=== PATIENT | female | born 1960 | race Hispanic/Latino ===

== ENCOUNTER 2016-10-08 20:56 | Emergency (ER) | payer OTHER ==
[2016-10-08 20:56] VITALS: BMI 32.3
[2016-10-08 21:03] VITALS: BP 134/66
[2016-10-08 21:06] VITALS: RESP 18; O2SAT 99
--- NOTE | 2016-10-08 21:14 | ED PDOC ---
Arrival/HPI - General Chief Complaint: Trauma Time Seen by Provider: 10/08/16 21:01 Historian: Patient, Caregiver - History of Present Illness Narrative History of Present Illness (Text): 10/08/16 21:04 Andreea Padilla is a 56 year old female, whose past medical history includes Down's Syndrome, hypothyroidism, gout and dementia, who presents to the emergency department accompanied by gang leader status post mechanical fall. [employer] states patient tripped on the bed and hit her head. Patient now complaining of a headache. [employer] denies any loss of consciousness, neck pain , back pain, abdominal, vomiting, or any other complaints. Time/Duration: Other Symptom Course: Unchanged Severity Level: Mild Activities at Onset: Light Modifying Factors (Text): None Context: Standing, Tripped Associated Symptoms (Text): None Past Medical History - Provider Review Nursing Documentation Reviewed: Yes - Infectious Disease Hx of Infectious Diseases: None - Tetanus Immunization Tetanus Immunization: Unknown - Cardiac Hx Cardiac Disorders: No Hx Hypertension: No - Pulmonary Hx Respiratory Disorders: Yes Hx Asthma: Yes - Neurological HX Cerebrovascular Accident: No Hx Dementia: (Down syndrome) Hx Seizures: No - HEENT Hx HEENT Disorder: Yes (strabismus) - Renal Hx Renal Disorder: No - Endocrine/Metabolic Hx Hypothyroidism: Yes - Hematological/Oncological Hx Blood Disorders: No Hx Cancer: No - Integumentary Hx Dermatological Disorder: No - Musculoskeletal/Rheumatological Hx Falls: No - Gastrointestinal Hx Gastrointestinal Disorders: No - Genitourinary/Gynecological Hx Genitourinary Disorders: No - Psychiatric Hx Psychophysiologic Disorder: Yes Hx Depression: Yes Hx Emotional Abuse: No Hx Physical Abuse: No Hx Substance Use: No - Past Surgical History Past Surgical History: Unable to Obtain - Suicidal Assessment Feels Threatened In Home Enviroment: No Family/Social History - Physician Review Nursing Documentation Reviewed: Yes Family/Social History: Unknown Family HX Smoking Status: Never Smoked Hx Alcohol Use: No Hx Substance Use: No Hx Substance Use Treatment: No Allergies/Home Meds Allergies/Adverse Reactions: Allergies peaches Allergy (Uncoded 10/08/16 21:17) RASH Home Medications: Home Meds Medication Instructions Recorded Confirmed Clonazepam 0.5 mg PO BID 08/16/11 07/15/14 Colchicine [Colcrys] 0.6 mg PO DAILY 08/16/11 07/15/14 Levothyroxine Sodium 75 mcg PO DAILY 08/16/11 07/15/14 Cholecalciferol [Vitamin D3] 1 tab PO DAILY 01/10/13 07/15/14 Allopurinol 300 mg PO DAILY 06/12/13 07/15/14 QUEtiapine [Seroquel] 100 mg PO DAILY 06/12/13 07/15/14 Famotidine 40 mg PO BID 12/09/13 07/15/14 QUEtiapine [Seroquel XR] 400 mg PO DAILY 12/09/13 07/15/14 Vitamin B Complex [Vitamin B 1 tab PO DAILY 12/09/13 07/15/14 Complex with B12] Fludrocortisone [Florinef] 0.05 mg PO DAILY 07/15/14 07/15/14 Polyethylene Glycol 3350 [Glycolax] 17 gm PO DAILY 07/15/14 07/15/14 Review of Systems - Physician Review All systems were reviewed & negative as marked: Yes - Review of Systems Constitutional: Normal Eyes: Other ENT: Normal Respiratory: Normal. absent: SOB, Cough Cardiovascular: Normal. absent: Chest Pain Gastrointestinal: Normal. absent: Abdominal Pain, Diarrhea, Vomiting Genitourinary Female: Normal Musculoskeletal: Normal. absent: Back Pain, Neck Pain Skin: Normal Neurological: Headache. absent: Dizziness Endocrine: Normal Hemo/Lymphatic: Normal Psychiatric: Normal Physical Exam Vital Signs Reviewed: Yes Vital Signs Temp Pulse Resp BP Pulse Ox 10/08/16 23:05 98.0 F 71 18 99 10/08/16 20:58 98.6 F 79 18 134/66 99 10/08/16 20:56 97.5 F L 69 16 134/66 96 Temperature: Afebrile Blood Pressure: Normal Pulse: Regular Respiratory Rate: Normal Appearance: Positive for: Well-Appearing Mental Status: Positive for: other (Alert) - Systems Exam Head: Present: Normocephalic, Contusion (Contusion to forehead) Pupils: Present: PERRL Extroacular Muscles: Present: EOMI Conjunctiva: Present: Normal Mouth: Present: Moist Mucous Membranes Neck: Present: Normal Range of Motion Respiratory/Chest: Present: Clear to Auscultation, Good Air Exchange. No: Respiratory Distress, Accessory Muscle Use Cardiovascular: Present: Regular Rate and Rhythm, Normal S1, S2. No: Murmurs Abdomen: Present: Normal Bowel Sounds. No: Tenderness, Distention, Peritoneal Signs Upper Extremity: Present: Normal Inspection. No: Cyanosis, Edema Lower Extremity: Present: Normal Inspection. No: Edema Neurological: Present: GCS=15, CN II-XII Intact Skin: Present: Warm, Dry, Normal Color. No: Rashes Psychiatric: Present: Alert Medical Decision Making ED Course and Treatment: 10/08/2016 21:04 Impression: 56 year old female s/p mechanical fall. Differential Diagnosis included but are not limited to: hematoma vs. head injury Plan: -- CT Head w/o contrast 10/08/16 22:50 Reviewed radiology, CT head shows: Limitations: Motion artifact - mild. Brain: Moderate atrophy. No definite intracranial hemorrhage. No mass. Moderate encephalomalacia within RIGHT parietal region. Mild encephalomalacia within LEFT frontal parietal region. Several scattered foci of decreased attenuation within periventricular/ subcortical white matter. No definite edema. Ventricles: No hydrocephalus. Bones/joints: No acute fracture. Soft tissues: Frontal/RIGHT periorbital soft tissue swelling. Vasculature: Mild atherosclerotic disease of intracranial arteries. Sinuses: No acute sinusitis. Mastoid air cells: Partial opacification of RIGHT mastoid. Orbits: Unremarkable as visualized. Drusens. IMPRESSION: 1. No definite intracranial hemorrhage. 2. Nonspecific white matter changes. 3. Incidental/non-acute findings are described above 10/08/16 22:56 On re-evaluation, the patient feels better and is in no acute distress. I have discussed the results and plan with the patient and gang leader, who expresses understanding. Patient and gang leader in agreement with plan to discharged home. Patient is stable for discharge. Patient and gang leader were instructed to follow up with physician/clinic in 1-2 days or return if symptoms worsen or new concerning symptoms arise. Re-evaluation Time: 22:56 Reassessment Condition: Re-examined, Improved - RAD Interpretation Radiology Orders: 10/08/16 21:06 HEAD W/O CONTRAST [CT] Stat Corporate Treasurer: Radiologist - Scribe Tadeo Lay training with Annabelle Urbano All medical record entries made by the Scribe were at my direction and personally dictated by me. I have reviewed the chart and agree that the record accurately reflects my personal performance of the history, physical exam, medical decision making, and the department course for this patient. I have also personally directed, reviewed, and agree with the discharge instructions and disposition. Disposition/Present on Arrival - Present on Arrival Any Indicators Present on Arrival: No History of DVT/PE: No History of Uncontrolled Diabetes: No Urinary Catheter: No History of Decub. Ulcer: No History Surgical Site Infection Following: None - Disposition Have Diagnosis and Disposition been Completed?: Yes Diagnosis: Head injury Disposition: HOME/ ROUTINE Disposition Time: 22:56 Condition: GOOD Discharge Instructions (ExitCare): Head Injury (ED) Referrals: Melvina Alex MD [Primary Care Provider] - Follow up with primary
--- NOTE | 2016-10-08 22:49 | CT ---
EXAM: CT Head Without Intravenous Contrast CLINICAL HISTORY: 56 years old, female; Injury or trauma; Fall; Initial encounter; Blunt trauma (contusions or hematomas) TECHNIQUE: Axial computed tomography images of the head/brain without intravenous contrast. This CT exam was performed using one or more of the following dose reduction techniques: automated exposure control, adjustment of the mA and/or kV according to patient size, and/or use of iterative reconstruction technique. COMPARISON: No relevant prior studies available. FINDINGS: Limitations: Motion artifact - mild. Brain: Moderate atrophy. No definite intracranial hemorrhage. No mass. Moderate encephalomalacia within RIGHT parietal region. Mild encephalomalacia within LEFT frontal parietal region. Several scattered foci of decreased attenuation within periventricular/subcortical white matter. No definite edema. Ventricles: No hydrocephalus. Bones/joints: No acute fracture. Soft tissues: Frontal/RIGHT periorbital soft tissue swelling. Vasculature: Mild atherosclerotic disease of intracranial arteries. Sinuses: No acute sinusitis. Mastoid air cells: Partial opacification of RIGHT mastoid. Orbits: Unremarkable as visualized. Drusens. IMPRESSION: 1. No definite intracranial hemorrhage. 2. Nonspecific white matter changes. 3. Incidental/non-acute findings are described above.
[2016-10-08 23:05] VITALS: PULSE 71; TEMP 98
== END 2016-10-08 23:06 | disposition home or self-care (01) ==
LOC: ED 20:56 → ERH 21:25 → UNDOADMOB 21:25 → ED 23:06
DX: S09.90XA Unspecified injury of head, initial encounter (principal); W01.190A Fall on same level from slipping, tripping and stumbling with subsequent striking against furniture, initial encounter; Y93.89 Activity, other specified; Y92.003 Bedroom of unspecified non-institutional (private) residence as the place of occurrence of the external cause

== ENCOUNTER 2016-12-31 10:55 | Emergency (ER) | payer OTHER ==
[2016-12-31 11:06] VITALS: BMI 34.0
[2016-12-31 11:10] VITALS: RESP 18; TEMP 97.9; O2SAT 99
[2016-12-31] MEDS ORDERED: TDAP Vaccine 0.5 mL Syr IM ONE (11:16)
--- NOTE | 2016-12-31 12:57 | CT ---
PROCEDURE: CT HEAD WITHOUT CONTRAST. HISTORY: headache COMPARISON: 10/08/2016 TECHNIQUE: Axial computed tomography images were obtained through the head/brain without intravenous contrast. Radiation dose: Total exam DLP = 701 mGy-cm. This CT exam was performed using one or more of the following dose reduction techniques: Automated exposure control, adjustment of the mA and/or kV according to patient size, and/or use of iterative reconstruction technique. FINDINGS: HEMORRHAGE: No intracranial hemorrhage. BRAIN: No mass effect or edema. Generalized cerebral atrophy and chronic microvascular ischemic changes similar-appearing. Old infarcts and encephalomalacia change - right posterior parietal and smaller left frontoparietal regions as noted previously. . VENTRICLES: Atrophy related ventricular prominence. -no change CALVARIUM: Unremarkable. PARANASAL SINUSES: Unremarkable as visualized. No significant inflammatory changes. MASTOID AIR CELLS: Unremarkable as visualized. No inflammatory changes. OTHER FINDINGS: Bilateral ocular lens convergence -unchanged IMPRESSION: No interval intracranial hemorrhage or mass effect. No midline shift or extra-axial collections. Chronic infarct chronic cephalo on Lasix changes. Atrophy changes -all similar
--- NOTE | 2016-12-31 13:09 | RAD ---
PROCEDURE: Right Knee Radiographs. HISTORY: knee pain COMPARISON: None. FINDINGS: BONES: Osseous hypertrophy worse separate well corticated ossifications bordering the superolateral patella and anterior medial femoral condyle. Both a developmental variant -bipartite patella and old osseous patellar avulsion injury are considerations. The findings are more pronounced than typically seen with just a bipartite patella. No acute fracture suspect JOINTS: Tricompartmental joint space narrowing patellofemoral joint space narrowing most pronounced JOINT EFFUSION: Possible minimal OTHER FINDINGS: Anterior intercondylar fossa spur and or loose body. IMPRESSION: Severe femoral joint space narrowing. Patellar laterally positioned -laterally centered to the lateral femoral condyle. Patellar osseous hypertrophic changes. A bipartite patella is 1 consideration. Additional patellar old osseous avulsions here however also suspect. Detailed medical history remote probably helpful Anterior inter condylar tibial surface spur versus tibial bordering loose body. No acute fracture suspect. No complete dislocation. Laterally position patella centered to the lateral femoral condyle
--- NOTE | 2016-12-31 13:24 | RAD ---
PROCEDURE: Right Wrist Radiographs. HISTORY: fall 2 days ago COMPARISON: None. FINDINGS: BONES: Plates with screws are partially visualized along the distal radial and ulnar shafts. Radiocarpal joint space narrowing no carpal fractures appreciated JOINTS: No dislocation. Radiocarpal joint space narrowing SOFT TISSUES: Normal. OTHER FINDINGS: None. IMPRESSION: No carpal fracture. No carpal dislocation. Radiocarpal joint space narrowing Distal radial and ulnar shaft side plates with screws -partially visualized
--- NOTE | 2016-12-31 13:28 | RAD ---
PROCEDURE: Right Hand Radiographs. HISTORY: fall 2 days ago COMPARISON: None. FINDINGS: BONES: No carpal or hand fractures Distal forearm orthopedic hardware partially visualize JOINTS: Mild distal interphalangeal joint arthrosis. Radiocarpal joint space degenerative narrowing SOFT TISSUES: Mild dorsal soft tissue swelling metacarpal head level OTHER FINDINGS: None. IMPRESSION: No hand or carpal proper fractures seen. Tiny spurs and/or sub mm ossific debris and or even old sub mm osseous chip dorsal avulsions at the radiocarpal articulation level cannot be entirely excluded. Here no soft tissue swelling suggested. Orthopedic hardware distal forearm Dorsal soft tissue swelling -metacarpal head level
--- NOTE | 2016-12-31 13:37 | RAD ---
PROCEDURE: Radiographs of the Right Forearm HISTORY: fall 2 days ago COMPARISON: None available. TECHNIQUE: Frontal and lateral views obtained. FINDINGS: BONES: Distal radial to epiphyseal trabecular microfracture -impaction type-nondisplaced suspect. Tiny chip fracture fragment borders the proximal radial styloid JOINT SPACES: Radiocarpal joint space narrowing OTHER FINDINGS: Radial and ulnar shafts side plates with horizontal screws in for presumed fractures here. No residual fracture lines here appreciated. No gross hardware failure appreciated. The screws are not all seen to separate views are completely in profile on both views available. Soft tissue calcification and or occasion levels and are dystrophic calcifications from prior trauma. . Subcutaneous reticulated edema IMPRESSION: Nondisplaced distal radial diaphyseal to epiphyseal trabecular microfracture with impaction. Elsewhere midshaft radial and ulnar orthopedic hardware present
--- NOTE | 2016-12-31 14:54 | ED PDOC ---
Arrival/HPI - General Chief Complaint: Trauma Time Seen by Provider: 12/31/16 11:15 Historian: Patient - History of Present Illness Narrative History of Present Illness (Text): 12/31/16 16:07 56yr old female presents today with right hand and wrist pain and swelling s/p fall 2 days ago. pt states she tripped and fell landing on right hand. she is c/ o of headache. denies dizziness or weakness. pt denies hitting her head. Fall was not witnessed by current staff with patient. pt denies any other complaints. Time/Duration: Other (2 days) Symptom Onset: Sudden Symptom Course: Unchanged Quality: Aching Past Medical History - Provider Review Nursing Documentation Reviewed: Yes - Travel History Have you recently traveled outside [place] w/in the past 3 mons?: No - Infectious Disease Hx of Infectious Diseases: None - Tetanus Immunization Tetanus Immunization: Unknown - Cardiac Hx Cardiac Disorders: No Hx Hypertension: No - Pulmonary Hx Respiratory Disorders: Yes Hx Asthma: Yes - Neurological HX Cerebrovascular Accident: No Hx Dementia: (Down syndrome) Hx Seizures: No - HEENT Hx HEENT Disorder: Yes (strabismus) - Renal Hx Renal Disorder: No - Endocrine/Metabolic Hx Hypothyroidism: Yes - Hematological/Oncological Hx Blood Disorders: No Hx Cancer: No - Integumentary Hx Dermatological Disorder: No - Musculoskeletal/Rheumatological Hx Falls: No - Gastrointestinal Hx Gastrointestinal Disorders: No - Genitourinary/Gynecological Hx Genitourinary Disorders: No - Psychiatric Hx Psychophysiologic Disorder: Yes Hx Depression: Yes Hx Emotional Abuse: No Hx Physical Abuse: No Hx Substance Use: No - Past Surgical History Past Surgical History: Unable to Obtain - Anesthesia Hx Anesthesia: No - Suicidal Assessment Feels Threatened In Home Enviroment: No Family/Social History - Physician Review Nursing Documentation Reviewed: Yes Family/Social History: Unknown Family HX Smoking Status: Never Smoked Hx Alcohol Use: No Hx Substance Use: No Hx Substance Use Treatment: No Allergies/Home Meds Allergies/Adverse Reactions: Allergies FISH Allergy (Verified 12/31/16 11:04) ANGIOEDEMA peaches Allergy (Uncoded 12/31/16 11:04) RASH Home Medications: Home Meds Medication Instructions Recorded Confirmed Clonazepam 0.5 mg PO BID 08/16/11 12/31/16 Colchicine [Colcrys] 0.6 mg PO DAILY 08/16/11 12/31/16 Levothyroxine Sodium 75 mcg PO DAILY 08/16/11 12/31/16 Cholecalciferol [Vitamin D3] 1 tab PO DAILY 01/10/13 12/31/16 Allopurinol 300 mg PO DAILY 06/12/13 12/31/16 QUEtiapine [Seroquel] 100 mg PO DAILY 06/12/13 12/31/16 Famotidine 40 mg PO BID 12/09/13 12/31/16 QUEtiapine [Seroquel XR] 400 mg PO DAILY 12/09/13 12/31/16 Vitamin B Complex [Vitamin B 1 tab PO DAILY 12/09/13 12/31/16 Complex with B12] Fludrocortisone [Florinef] 0.05 mg PO DAILY 07/15/14 12/31/16 Polyethylene Glycol 3350 [Glycolax] 17 gm PO DAILY 07/15/14 12/31/16 Review of Systems - Review of Systems Constitutional: absent: Fatigue, Fevers Respiratory: absent: SOB, Cough Cardiovascular: absent: Chest Pain Gastrointestinal: absent: Abdominal Pain Musculoskeletal: Arthralgias. absent: Back Pain, Neck Pain Neurological: Headache. absent: Dizziness Physical Exam Vital Signs Reviewed: Yes Vital Signs Temp Pulse Resp BP Pulse Ox 12/31/16 11:08 97.9 F 83 18 107/68 99 Temperature: Afebrile Blood Pressure: Normal Pulse: Regular Respiratory Rate: Normal Appearance: Positive for: Well-Appearing, Non-Toxic, Comfortable Pain Distress: None Mental Status: Positive for: Alert and Oriented X 3 - Systems Exam Head: Present: Atraumatic Pupils: Present: PERRL Mouth: Present: Moist Mucous Membranes Neck: Present: Normal Range of Motion. No: MIDLINE TENDERNESS, Paraspinal Tenderness Respiratory/Chest: Present: Clear to Auscultation Cardiovascular: Present: Regular Rate and Rhythm Upper Extremity: Present: NORMAL PULSES, Tenderness (right wrist/hand; + edema and ecchymosis noted to hand and wrist; + ttp over dorsal wrist; limited rom of hand and wrist; sensation and distal pulses intact; cap refill <2. no elbow tenderness. ), Swelling, Neurovascularly Intact, Capillary Refill < 2s. No: Normal ROM, Erythema Neurological: Present: GCS=15, Speech Normal Skin: Present: Warm, Dry, Normal Color. No: Rashes Psychiatric: Present: Alert, Oriented x 3 Medical Decision Making ED Course and Treatment: 12/31/16 14:54 pt non toxic well appearing. c/o right hand/wrist pain tetanus updated. toradol given IM. xrays right hand:FINDINGS: BONES: No carpal or hand fractures Distal forearm orthopedic hardware partially visualize JOINTS: Mild distal interphalangeal joint arthrosis. Radiocarpal joint space degenerative narrowing SOFT TISSUES: Mild dorsal soft tissue swelling metacarpal head level OTHER FINDINGS: None. IMPRESSION: No hand or carpal proper fractures seen. Tiny spurs and/or sub mm ossific debris and or even old sub mm osseous chip dorsal avulsions at the radiocarpal articulation level cannot be entirely excluded. Here no soft tissue swelling suggested. Orthopedic hardware distal forearm Dorsal soft tissue swelling -metacarpal head level ADDENDUM: Subtle nondisplaced distal radial trabecular microfracture -probable impaction type suspect. xray right wrist: ADDENDUM: A faint distal radio metaphyseal to epiphyseal displaced trabecular impaction fracture suspect -trace volar cortical interruption. FINDINGS: BONES: Plates with screws are partially visualized along the distal radial and ulnar shafts. Radiocarpal joint space narrowing no carpal fractures appreciated JOINTS: No dislocation. Radiocarpal joint space narrowing SOFT TISSUES: Normal. OTHER FINDINGS: None. IMPRESSION: No carpal fracture. No carpal dislocation. Radiocarpal joint space narrowing Distal radial and ulnar shaft side plates with screws -partially visualized xray right forearmFINDINGS: BONES: Distal radial to epiphyseal trabecular microfracture -impaction type- nondisplaced suspect. Tiny chip fracture fragment borders the proximal radial styloid JOINT SPACES: Radiocarpal joint space narrowing OTHER FINDINGS: Radial and ulnar shafts side plates with horizontal screws in for presumed fractures here. No residual fracture lines here appreciated. No gross hardware failure appreciated. The screws are not all seen to separate views are completely in profile on both views available. Soft tissue calcification and or occasion levels and are dystrophic calcifications from prior trauma. . Subcutaneous reticulated edema IMPRESSION: Nondisplaced distal radial diaphyseal to epiphyseal trabecular microfracture with impaction. Elsewhere midshaft radial and ulnar orthopedic hardware present head CT; FINDINGS: HEMORRHAGE: No intracranial hemorrhage. BRAIN: No mass effect or edema. Generalized cerebral atrophy and chronic microvascular ischemic changes similar-appearing. Old infarcts and encephalomalacia change - right posterior parietal and smaller left frontoparietal regions as noted previously. . VENTRICLES: Atrophy related ventricular prominence. -no change CALVARIUM: Unremarkable. PARANASAL SINUSES: Unremarkable as visualized. No significant inflammatory changes. MASTOID AIR CELLS: Unremarkable as visualized. No inflammatory changes. OTHER FINDINGS: Bilateral ocular lens convergence -unchanged IMPRESSION: No interval intracranial hemorrhage or mass effect. No midline shift or extra- axial collections. Chronic infarct chronic cephalo on Lasix changes. Atrophy changes -all similar pt placed in sugar tong splint. sling applied. spoke with dr. yu; discussed case in depth; he states he is coming to the ER now and will come see patient in ER. pt was seen and evaluated by dr. yu; he advised due to swelling the sugar tong splint is perfect and he will see the patient in the office in 10 days and re-evaluation. all results discussed with patient and caregiver. advised f/u with dr. yu in 7-10 days in office. motrin for pain every 6 hours. return immediately if symptoms worsen,persist or if new symptoms develop. Impression: wrist fracture motrin every 6 hours as needed for pain use Sling Rest, Ice, follow up with dr. Yu in 7-10 days return immediately if symptoms worsen,persist or if new symptoms develop; high fevers, increasing pain, redness, swelling or if any other concerning symptoms develop. - RAD Interpretation Radiology Orders: 12/31/16 11:15 HEAD W/O CONTRAST [CT] Stat FOREARM RIGHT [RAD] Stat HAND RIGHT 3 VIEWS [RAD] Stat WRIST, RIGHT 3 VIEWS [RAD] Stat 12/31/16 11:16 KNEE W PATELLA RIGHT 3 VIEW [RAD] Stat - Medication Orders Current Medication Orders: Discontinued Medications Ketorolac Tromethamine (Toradol) 15 mg IM STAT STA Stop: 12/31/16 11:17 Last Admin: 12/31/16 11:28 Dose: 15 mg MAR Pain Assessment Document 12/31/16 11:28 EQ (Rec: 12/31/16 11:29 EQ [id number]) Pain Reassessment Is this a pain reassessment? No Sleep Is patient sleeping during reassessment? No Presence of Pain Presence of Pain Yes Pain Scale Used Pain Scale Used Numeric Location Left, Right or Bilateral Right Pain Location Body Site Wrist Hand Description Description Constant Intensity of Pain at present 6 IM Administration Charges Document 12/31/16 11:28 EQ (Rec: 12/31/16 11:29 EQ [id number]) Injection Site MAR Injection Site Right Arm Charges for Administration # of IM Administrations 1 Tetanus/Reduced Diphtheria/Acell Pertussis (Boostrix Vaccine Inj) 0.5 ml IM .ONCE ONE Stop: 12/31/16 11:17 Last Admin: 12/31/16 11:27 Dose: 0.5 ml MAR Immunization Data Document 12/31/16 11:27 EQ (Rec: 12/31/16 11:28 EQ [id number]) Immunization Data Vaccine Lot Number [id number] Vaccine Expiration Date 12/17/18 Site Given Left Deltoid Route Intramuscular Immunization Units ml Procedures - Splinting Location: right wrist Hand-Made Type: fiberglass Splint: sugar-tong Pre-Proc Neuro Vasc Exam: normal Post-Proc Neuro Vasc Exam: normal Disposition/Present on Arrival - Present on Arrival Any Indicators Present on Arrival: No History of DVT/PE: No History of Uncontrolled Diabetes: No Urinary Catheter: No History of Decub. Ulcer: No History Surgical Site Infection Following: None - Disposition Have Diagnosis and Disposition been Completed?: Yes Diagnosis: Wrist fracture Disposition: HOME/ ROUTINE Disposition Time: 14:56 Patient Plan: Discharge Patient Problems: Current Active Problems Problem Status Onset Wrist fracture Acute Condition: GOOD Discharge Instructions (ExitCare): Wrist Fracture in Adults (ED) Additional Instructions: motrin every 6 hours as needed for pain use Sling Rest, Ice, follow up with dr. Yu in 7-10 days return immediately if symptoms worsen,persist or if new symptoms develop; high fevers, increasing pain, redness, swelling or if any other concerning symptoms develop. Prescriptions: Ibuprofen [Motrin Tab] 400 mg PO Q6H PRN #20 tab PRN Reason: Pain, Mild (1-3) Referrals: Melvina Alex MD [Primary Care Provider] - Follow up with primary Salvador Yu DO [Staff Provider] - Follow up with primary Forms: [employer] (Chinese)
[2016-12-31 15:49] VITALS: BP 108/70; PULSE 74
--- NOTE | 2017-01-01 07:38 | CON ---
DATE: 12/31/2016 HISTORY OF PRESENT ILLNESS: A 56-year-old female with Down's disease in a longterm, slipped and fell approximately on 12/26/2016, injured her dominant right wrist. X-ray showed a nondisplaced fracture of distal radius in good position on multiple views of her right wrist. She was put in a coaptation splint because she did have previous fracture of both bones of her forearm. This will protect the plates in her right forearm for previously operated on forearm and to protect the right wrist and I will see her in office in 2 weeks, probably take the cast off and put her in a wrist splint. FINAL DIAGNOSIS: Nondisplaced distal right radius fracture in a female patient, 56 years old with mild osteopenia and I will see her in 2 weeks and probably put her in a short arm splint. Salvador Garcia DO
== END 2016-12-31 15:58 | disposition home or self-care (01) ==
LOC: ED 10:55
DX: S52.591A Other fractures of lower end of right radius, initial encounter for closed fracture (principal); W01.0XXA Fall on same level from slipping, tripping and stumbling without subsequent striking against object, initial encounter; Y93.9 Activity, unspecified; Y92.89 Other specified places as the place of occurrence of the external cause
CPT/HCPCS: 70450; 73090; 73110; 73130; 73562; 90471; 90715; 96372; 99284; J1885

== ENCOUNTER 2017-03-12 22:57 | Inpatient (IN) | payer OTHER ==
[2017-03-12 22:58] VITALS: BMI 34.0
[2017-03-13 00:40] LABS: BASO # 0.04 K/mm3 (0.0-2.0); BASO % 0.7 % (0.0-3.0); EOS % 0.7 % (1.5-5.0); GRAN # 3.62 (1.4-6.5); GRAN % 62.6 % (50.0-68.0); HEMATOCRIT 35.1 % (36.0-48.0); LYMPH # 1.7 (1.2-3.4); LYMPH % 29.6 % (22.0-35.0); MEAN CELL VOLUME 96.7 fl (80.0-105.0); MEAN CORPUSCULAR HEMOGLOBIN 30.6 pg (25.0-35.0); MEAN CORPUSCULAR HGB CONC 31.6 g/dl (31.0-37.0); MEAN PLATELET VOLUME 11.4 fl (7.0-11.0); MONO # 0.4 (0.1-0.6); MONO % 6.4 % (1.0-6.0); RED CELL DISTRIBUTION WIDTH 17.8 % (11.5-14.5); WHITE BLOOD COUNT 5.8 10^3/ul (4.5-11.0)
[2017-03-13 01:03] LABS: TROPONIN I < 0.01 ng/mL
[2017-03-13 01:21] LABS: ALB/GLOB RATIO 1.2 (1.1-1.8); ALKALINE PHOSPHATASE 121 U/L (38-126); ALT/SGPT 25 U/L (7-56); AST/SGOT 23 U/L (14-36); BILIRUBIN,TOTAL 0.3 mg/dL (0.2-1.3); BLOOD UREA NITROGEN 21 mg/dL (7-21); CALCIUM 8.7 mg/dL (8.4-10.5); CARBON DIOXIDE 28 mmol/L (21-33); CHLORIDE 105 mmol/L (98-107); GFR AFRICAN-AMERICAN > 60; GLUCOSE,RANDOM 115 mg/dL (70-110); LIPASE 288 U/L (23-300); POTASSIUM 3.7 mmol/L (3.6-5.0); SODIUM 141 mmol/L (132-148); TOTAL PROTEIN 6.5 g/dL (5.8-8.3)
--- NOTE | 2017-03-13 02:26 | CT ---
EXAM: CT Head Without Intravenous Contrast CLINICAL HISTORY: 57 years old, female; Pain; Headache; Patient HX: Pt has down syndrome TECHNIQUE: Axial computed tomography images of the head/brain without intravenous contrast. All CT scans at this facility use one or more dose reduction techniques, viz.: automated exposure control; ma/kV adjustment per patient size (including targeted exams where dose is matched to indication; i.e. head); or iterative reconstruction technique. COMPARISON: CT - HEAD W/O CONTRAST 2016-12-31 11:30 FINDINGS: Limitations: Suboptimal positioning. Brain: Moderate atrophy. No intracranial hemorrhage. No mass. Moderate encephalomalacia within RIGHT parietal region. Mild encephalomalacia within LEFT parietal region. Several scattered foci of decreased attenuation within periventricular/subcortical white matter. No edema. Ventricles: No hydrocephalus. Bones/joints: No acute fracture. Soft tissues: RIGHT parietal soft tissue swelling. Vasculature: Atherosclerotic disease of intracranial arteries. Sinuses: No acute sinusitis. Mastoid air cells: Partial opacification of RIGHT mastoid, stable. Orbits: Drusens. IMPRESSION: 1. No intracranial hemorrhage. 2. Nonspecific white matter changes. 3. Incidental/non-acute findings are described above.
--- NOTE | 2017-03-13 02:30 | CT ---
EXAM: CT Thoracic Spine Without Intravenous Contrast CLINICAL HISTORY: 57 years old, female; Injury or trauma; Fall; Initial encounter; Sprain or strain; Additional info: Fall, back pain TECHNIQUE: Axial computed tomography images of the thoracic spine without intravenous contrast. All CT scans at this facility use one or more dose reduction techniques, viz.: automated exposure control; ma/kV adjustment per patient size (including targeted exams where dose is matched to indication; i.e. head); or iterative reconstruction technique. Coronal and sagittal reformatted images were created and reviewed. COMPARISON: No relevant prior studies available. FINDINGS: Vertebrae: No acute fracture. Discs/spinal canal/neural foramina: Mild spondylosis. No significant spinal stenosis. Soft tissues: Unremarkable. Vasculature: Minimal atherosclerotic disease of aorta. Lungs: Mosaic pattern of lung parenchyma, nonspecific. Kidneys and ureters: Mild scarring LEFT kidney. IMPRESSION: 1. No fracture. 2. Incidental/non-acute findings are described above.
--- NOTE | 2017-03-13 02:35 | CT ---
EXAM: CT Cervical Spine Without Intravenous Contrast CLINICAL HISTORY: 57 years old, female; Injury or trauma; Fall; Initial encounter; Sprain or strain, cervical ligaments; Patient HX: Pt has down syndrome; Additional info: Neck pain TECHNIQUE: Axial computed tomography images of the cervical spine without intravenous contrast. All CT scans at this facility use one or more dose reduction techniques, viz.: automated exposure control; ma/kV adjustment per patient size (including targeted exams where dose is matched to indication; i.e. head); or iterative reconstruction technique. Coronal and sagittal reformatted images were created and reviewed. COMPARISON: DX - CERVICAL SPINE AP LATERAL 2017-01-02 14:03 FINDINGS: Vertebrae: No acute fracture. Degenerative anterolisthesis of mid cervical spine. Facet osteoarthrosis within mid cervical spine. Discs/spinal canal/neural foramina: Mild degenerative disc disease within upper cervical spine. Early degenerative disc disease within mid cervical spine. [id number] degenerative disc disease within lower cervical spine. Disc herniations at few levels, suboptimally evaluated. Mild indentation thecal sac mid cervical spine. Mild neuroforaminal narrowing with mid cervical spine. Soft tissues: Unremarkable. Lung apices: Unremarkable as visualized. IMPRESSION: 1. No fracture. 2. Incidental/non-acute findings are described above.
--- NOTE | 2017-03-13 03:29 | ED PDOC ---
Arrival/HPI <Man Marquez - Last Filed: 03/13/17 03:47> - General Historian: Patient, Caregiver <Annel Wick - Last Filed: 03/13/17 03:59> - General Chief Complaint: Trauma Time Seen by Provider: 03/12/17 23:43 - History of Present Illness Narrative History of Present Illness (Text): 03/13/17 03:26 57-year-old female with a history of Down's syndrome presents today complaining of dizziness and fall. Per intermediate staff they heard a loud bang and went and found the patient on the ground. Patient unable to explain if she tripped and fell. Patient denies chest pain but is complaining of dizziness. Patient unsure if she hit her head. Patient denies any complaints but when the ankles are palpated she complains of pain and when the posterior neck is palpated she complains of pain. No vomiting or diarrhea. No urinary symptoms. half-way staff state the patient has swelling to the right hand. No other complaints ( Annel Wick) Past Medical History - Provider Review Nursing Documentation Reviewed: Yes - Travel History Have you recently traveled outside [place] w/in the past 3 mons?: No - Infectious Disease Hx of Infectious Diseases: None - Tetanus Immunization Tetanus Immunization: Unknown - Cardiac Hx Cardiac Disorders: No Hx Hypertension: No - Pulmonary Hx Respiratory Disorders: Yes Hx Asthma: Yes - Neurological HX Cerebrovascular Accident: No Hx Dementia: (Down syndrome) Hx Seizures: No - HEENT Hx HEENT Disorder: Yes (strabismus) - Renal Hx Renal Disorder: No - Endocrine/Metabolic Hx Hypothyroidism: Yes - Hematological/Oncological Hx Blood Disorders: No Hx Cancer: No - Integumentary Hx Dermatological Disorder: No - Musculoskeletal/Rheumatological Hx Falls: No - Gastrointestinal Hx Gastrointestinal Disorders: No - Genitourinary/Gynecological Hx Genitourinary Disorders: No - Psychiatric Hx Psychophysiologic Disorder: Yes Hx Depression: Yes Hx Emotional Abuse: No Hx Physical Abuse: No Hx Substance Use: No - Past Surgical History Past Surgical History: Unable to Obtain - Anesthesia Hx Anesthesia: No - Suicidal Assessment Feels Threatened In Home Enviroment: No <Annel Wick - Last Filed: 03/13/17 03:59> Family/Social History - Physician Review Nursing Documentation Reviewed: Yes Family/Social History: Unknown Family HX Smoking Status: Never Smoked Hx Alcohol Use: No Hx Substance Use: No Hx Substance Use Treatment: No <Annel Wick - Last Filed: 03/13/17 03:59> Allergies/Home Meds <Man Marquez - Last Filed: 03/13/17 03:47> <Annel Wick - Last Filed: 03/13/17 03:59> Allergies/Adverse Reactions: Allergies FISH Allergy (Verified 03/12/17 23:33) ANGIOEDEMA peaches Allergy (Uncoded 03/12/17 23:33) RASH Home Medications: Home Meds Medication Instructions Recorded Confirmed Clonazepam 0.5 mg PO BID 08/16/11 12/31/16 Colchicine [Colcrys] 0.6 mg PO DAILY 08/16/11 12/31/16 Levothyroxine Sodium 75 mcg PO DAILY 08/16/11 12/31/16 Cholecalciferol [Vitamin D3] 1 tab PO DAILY 01/10/13 12/31/16 Allopurinol 300 mg PO DAILY 06/12/13 12/31/16 QUEtiapine [Seroquel] 100 mg PO DAILY 06/12/13 12/31/16 Famotidine 40 mg PO BID 12/09/13 12/31/16 QUEtiapine [Seroquel XR] 400 mg PO DAILY 12/09/13 12/31/16 Vitamin B Complex [Vitamin B 1 tab PO DAILY 12/09/13 12/31/16 Complex with B12] Fludrocortisone [Florinef] 0.05 mg PO DAILY 07/15/14 12/31/16 Polyethylene Glycol 3350 [Glycolax] 17 gm PO DAILY 07/15/14 12/31/16 Review of Systems - Review of Systems Constitutional: absent: Fatigue Respiratory: absent: SOB, Cough Cardiovascular: absent: Chest Pain Gastrointestinal: absent: Abdominal Pain, Nausea, Vomiting Musculoskeletal: Arthralgias, Neck Pain Neurological: Dizziness. absent: Headache <Annel Wick - Last Filed: 03/13/17 03:59> Physical Exam Vital Signs Reviewed: Yes Temperature: Afebrile Blood Pressure: Normal Pulse: Regular Respiratory Rate: Normal Appearance: Positive for: Well-Appearing, Non-Toxic, Comfortable Pain Distress: None Mental Status: Positive for: Alert and Oriented X 3 - Systems Exam Head: Present: Atraumatic. No: Tenderness, Contusion, Swelling, Ecchymosis, Abrasion, Laceration Pupils: Present: PERRL Conjunctiva: Present: Normal Mouth: Present: Moist Mucous Membranes Nose (External): Present: Atraumatic Nose (Internal): Present: Normal Inspection Neck: Present: Normal Range of Motion, MIDLINE TENDERNESS, Trachea Midline, Other (+ edema noted to posterior neck with tenderness midline). No: Paraspinal Tenderness Respiratory/Chest: Present: Clear to Auscultation, Good Air Exchange. No: Respiratory Distress, Accessory Muscle Use, Tender to Palpation Cardiovascular: Present: Regular Rate and Rhythm Abdomen: No: Tenderness, Distention, Rebound, Guarding Back: Present: Normal Inspection, Midline Tenderness (+ minimal ttp to upper back. ). No: Paraspinal Tenderness Upper Extremity: Present: Normal ROM, NORMAL PULSES, Swelling, Neurovascularly Intact, Capillary Refill < 2s, Other (right hand; + ecchymosis along dorsal aspect of hand at 1-2nd metacarpals; full rom of hand; wrist non tender; full rom of wrist. no elbow or shoulder tenderness bilaterally. ). No: Tenderness, Erythema Lower Extremity: Present: Normal ROM, Tenderness (right ankle; + ttp and swelling noted to lateral malleolus; no erythema; no ecchymosis; left ankle; + ttp over lateral malleolus, + wound to lateral aspect of ankle; sensation and distal pulses intact; no calf tenderness; no knee tenderness; full rom of hips. pelvis stable. ). No: CALF TENDERNESS Neurological: Present: Motor Func Grossly Intact, Normal Sensory Function Skin: Present: Warm, Dry Psychiatric: Present: Alert, Oriented x 3 <Annel Wick T - Last Filed: 03/13/17 03:59> Vital Signs Temp Pulse Resp BP Pulse Ox 03/12/17 22:58 98.0 F 68 16 125/57 L 99 Medical Decision Making <Man Marquez - Last Filed: 03/13/17 03:47> <Annel Wick - Last Filed: 03/13/17 03:59> ED Course and Treatment: 03/13/17 03:32 57yr old female with dizziness and fall. pt refusing medications for pain; denies pain. ct head; FINDINGS: Limitations: Suboptimal positioning. Brain: Moderate atrophy. No intracranial hemorrhage. No mass. Moderate encephalomalacia within RIGHT parietal region. Mild encephalomalacia within LEFT parietal region. Several scattered foci of decreased attenuation within periventricular/subcortical white matter. No edema. Ventricles: No hydrocephalus. Bones/joints: No acute fracture. Soft tissues: RIGHT parietal soft tissue swelling. Vasculature: Atherosclerotic disease of intracranial arteries. Sinuses: No acute sinusitis. Mastoid air cells: Partial opacification of RIGHT mastoid, stable. Orbits: Drusens. IMPRESSION: 1. No intracranial hemorrhage. 2. Nonspecific white matter changes. 3. Incidental/non-acute findings are described above. ct neck: FINDINGS: Vertebrae: No acute fracture. Degenerative anterolisthesis of mid cervical spine. Facet osteoarthrosis within mid cervical spine. Discs/spinal canal/neural foramina: Mild degenerative disc disease within upper cervical spine. Early degenerative disc disease within mid cervical spine. [id number] degenerative disc disease within lower cervical spine. Disc herniations at few levels, suboptimally evaluated. Mild indentation thecal sac mid cervical spine. Mild neuroforaminal narrowing with mid cervical spine. Soft tissues: Unremarkable. Lung apices: Unremarkable as visualized. IMPRESSION: 1. No fracture. 2. Incidental/non-acute findings are described above. ct dorsal spineFINDINGS: Vertebrae: No acute fracture. Discs/spinal canal/neural foramina: Mild spondylosis. No significant spinal stenosis. Soft tissues: Unremarkable. Vasculature: Minimal atherosclerotic disease of aorta. Lungs: Mosaic pattern of lung parenchyma, nonspecific. Kidneys and ureters: Mild scarring LEFT kidney. IMPRESSION: 1. No fracture. 2. Incidental/non-acute findings are described above. cxr: no infiltrate cbc; wnl cmp; wnl trop; wnl ekg; normal sinus rhythm at 68b/m no st elevations, qtc 499, incomplete rbbb. asa given PO xray right hand no fracture xray; right ankle; + fracture distal fibula xray left ankle; no fracture pt placed into posterior short leg splint on right ankle. 03/13/17 03:55 all results discussed with patient/ caregiver. case discussed with the resident and dr. hagen; accepts admission observational status to [facility] for dizziness r/o syncope. impression; dizziness, syncope, ankle fracture admit observational status to tele; with ortho consult. (Annel Wick) - Lab Interpretations Lab Results: 03/13/17 00:30 03/13/17 00:30 Lab Results 03/13/17 00:30: WBC 5.8 D, RBC 3.63, Hgb 11.1 L, Hct 35.1 L, MCV 96.7, MCH 30.6 , MCHC 31.6, RDW 17.8 H, Plt Count 258, MPV 11.4 H, Gran % 62.6, Lymph % (Auto) 29.6, [place] % (Auto) 6.4 H, Eos % (Auto) 0.7 L, Baso % (Auto) 0.7, Gran # 3.62, Lymph # 1.7, [place] # 0.4, Eos # 0.0, Baso # 0.04 03/13/17 00:30: Sodium 141, Potassium 3.7, Chloride 105, Carbon Dioxide 28, Anion Gap 11, BUN 21, Creatinine 0.9, Est GFR ( Amer) > 60, Est GFR (Non- Af Amer) > 60, Random Glucose 115 H, Calcium 8.7, Total Bilirubin 0.3, AST 23, ALT 25, Alkaline Phosphatase 121, Lactate Dehydrogenase 712 H, Total Creatine Kinase 85, Troponin I < 0.01, Total Protein 6.5, Albumin 3.5, Globulin 3.0, Albumin/Globulin Ratio 1.2, Lipase 288 - RAD Interpretation Radiology Orders: 03/12/17 23:50 CERVICAL SPINE W/O CONTRAST [CT] Stat HEAD W/O CONTRAST [CT] Stat THORACIC SPINE W/O CONT [CT] Stat CHEST PORTABLE [RAD] Stat ANKLE LEFT 3 VIEWS ROUTINE [RAD] Stat ANKLE RIGHT 3 VIEWS ROUTINE [RAD] Stat HAND RIGHT 3 VIEWS [RAD] Stat - Medication Orders Current Medication Orders: Discontinued Medications Aspirin (Aspirin) 325 mg PO STAT STA Stop: 03/13/17 03:33 Procedures - Splinting Location: right ankle Hand-Made Type: fiberglass Splint: posterior short leg splint Pre-Proc Neuro Vasc Exam: normal Post-Proc Neuro Vasc Exam: normal <Annel Wick - Last Filed: 03/13/17 03:59> - PA / PREFABRICATOR / Resident Statement NIKITA has reviewed & agrees with the documentation as recorded. NIKITA has examined the patient and agrees with the treatment plan. <Man Marquez - Last Filed: 03/13/17 03:47> Disposition/Present on Arrival <Man Marquez - Last Filed: 03/13/17 03:47> - Present on Arrival Any Indicators Present on Arrival: No History of DVT/PE: No History of Uncontrolled Diabetes: No Urinary Catheter: No History of Decub. Ulcer: No History Surgical Site Infection Following: None - Disposition Have Diagnosis and Disposition been Completed?: Yes Disposition Time: 03:57 Patient Plan: Observation <Annel Wick - Last Filed: 03/13/17 03:59> - Disposition Diagnosis: Dizziness, Near syncope, Ankle fracture, Contusion, hand, Neck pain Disposition: HOSPITALIZED Condition: FAIR
--- NOTE | 2017-03-13 03:49 | CP.PCM.HP ---
<Mundo Pearl - Last Filed: 03/13/17 04:35> History of Present Illness - History of Present Illness History of Present Illness: CC: Eval s/p fall Subjective: HPI: Pt is a 57 year old female w/ a PMHx of Trisomy 21, CVA, obesity, gout, hypotension, hypothyroidism, sleep apnea, CKD, GERD, antisocial personality disorder, mood disorder, gout was brought in by care provider after finding her next to her bed s/p presumed mechanical fall without any loss of consciousness. As per care provider, she did not witness the fall however was immediately present s/p fall. Pt has had multiple falls in the past week, and looses balance every time she tries to stand up. Patient alludes to experiencing posterior neck pain and tenderness in the lower left extremity. 12 point review of systems could not be attained due to altered mental status. PSHx: right wrist surgery PMHx: Trisomy 21, CVA obesity, gout, hypotension, hypothyroidism, sleep apnea, CKD, GERD, antisocial personality disorder, mood disorder, gout All: Seafood and Peaches SocHx: Former smoker, and quit 5 years ago. According to the care provider, pt has never participated in illegal drugs or alcohol in the past. Hosp: Pt was last seen at [facility] s/p fall. FamHx: Unknown Meds: See Note Psychiatry- Dr. Garcia ROS: 12 point review of systems could not be attained due to altered mental status Physical Examination: - Constitutional Appears: Non-toxic, No Acute Distress - Head Exam Head Exam: atraumatic, normocephalic - Eye Exam Eye Exam: Normal appearance, PERRL. absent: Scleral icterus - ENT Exam ENT Exam: Mucous Membranes Moist - Neck Exam Neck exam: Normal Inspection - Respiratory Exam Respiratory Exam: Normal Breathing Pattern - Cardiovascular Exam Cardiovascular Exam: +S1, +S2. absent: Gallop, JVD - GI/Abdominal Exam GI & Abdominal Exam: Normal Bowel Sounds, absent: Distended, Guarding, Pulsatile Mass, Rebound, Rigid - Extremities Exam Extremities exam: tenderness to palpation of the right ankle Negative for: calf tenderness - Neurological Exam Neurological exam: Patient is AA0 x1, awake, alert, responds to verbal stimuli , follows commands, and moves extremities past midline - Psychiatric Exam Psychiatric exam: Normal Affect, Normal Mood - Skin Skin Exam: warm and dry, ecchymosis left thumb, pressure ulcer on right heel Assessment and Plan: Pt is a 57 year old female w/ a PMHx of Trisomy 21, CVA, obesity, gout, hypotension, hypothyroidism, sleep apnea, CKD, GERD, antisocial personality disorder, mood disorder, gout was brought in by care provider after finding her next to her bed s/p presumed mechanical fall without any loss of consciousness. Fall - head CT- No intracranial hemorrhage . Nonspecific white matter changes. - cervical spine CT- no acute fracture - thoracic spine CT- no acute fracture, mild spondylosis, no significant spinal stenosis. - hand and ankle xrays pending- unofficial read of ankle xray showing possible right ankle distal tibial fracture- will be splinted in the ED - high risk fall precautions and 1:1 - pain control with tylenol - physical therapy evaluation and treatment - ortho consulted- appreciate recommendations CKD - creatinine and Bun reviewed, trended, and appreciated- WNL - avoid nephrotoxins Anemia - Hgb reviewed, trended, and appreciated - MCV is normocytic- FOBT ordered - monitor closely via CBC - consider iron, tibc, ferritin, peripheral smear pending patients clinical course Hx of CVA - c/w aspirin Hx of Hypotension - BP reviewed, trended, and appreciated- stable SBP > 100 now Hx of Gout - continue allopurinol Hx of Hypothyroidism - continue synthroid Antisocial personality disorder, Mood disorder - no acute behavioral problems - continue with home seroquel, please confirm with manager critical care unit regarding seroquel XR dosage prior to administering - consider consulting psych pending patients clinical course Prophylaxis - DVT ppx- subq heparin as per jaena score - GI ppx- famotidine Patient case discussed with and plan approved by attending physician. 03/13/17 03:43 Present on Admission - Present on Admission Any Indicators Present on Admission: No Past Patient History - Infectious Disease Hx of Infectious Diseases: None - Tetanus Immunizations Tetanus Immunization: Unknown - Past Social History Smoking Status: Never Smoked - CARDIAC Hx Cardiac Disorders: No Hx Hypertension: No - PULMONARY Hx Respiratory Disorders: Yes Hx Asthma: Yes - NEUROLOGICAL HX Cerebrovascular Accident: No Hx Dementia: (Down syndrome) Hx Seizures: No - HEENT Hx HEENT Problems: Yes (strabismus) - RENAL Hx Chronic Kidney Disease: No - ENDOCRINE/METABOLIC Hx Hypothyroidism: Yes - HEMATOLOGICAL/ONCOLOGICAL Hx Blood Disorders: No Hx Cancer: No - INTEGUMENTARY Hx Dermatological Problems: No - MUSCULOSKELETAL/RHEUMATOLOGICAL Hx Falls: No - GASTROINTESTINAL Hx Gastrointestinal Disorders: No - GENITOURINARY/GYNECOLOGICAL Hx Genitourinary Disorders: No - PSYCHIATRIC Hx Psychophysiologic Disorder: Yes Hx Depression: Yes Hx Emotional Abuse: No Hx Physical Abuse: No Hx Substance Use: No - SURGICAL HISTORY Hx Surgeries: No - ANESTHESIA Hx Anesthesia: No Meds Allergies/Adverse Reactions: Allergies Allergy/AdvReac Type Severity Reaction Status Date / Time FISH Allergy ANGIOEDEMA Verified 03/12/17 23:33 peaches Allergy RASH Uncoded 03/12/17 23:33 Results - Vital Signs Recent Vital Signs: Last Vital Signs Temp 98.0 F 03/12/17 22:58 Pulse 68 03/12/17 22:58 Resp 16 03/12/17 22:58 BP 125/57 L 03/12/17 22:58 Pulse Ox 99 03/12/17 22:58 - Labs Result Diagrams: 03/13/17 00:30 03/13/17 00:30 <Adriane Lai - Last Filed: 03/13/17 06:43> Results - Vital Signs Recent Vital Signs: Last Vital Signs Temp 98.2 F 03/13/17 04:21 Pulse 86 03/13/17 04:21 Resp 20 03/13/17 04:21 BP 142/68 03/13/17 04:21 Pulse Ox 98 03/13/17 04:21 - Labs Result Diagrams: 03/13/17 00:30 03/13/17 00:30 Attending/Attestation - Attestation I have personally seen and examined this patient.: Yes I have fully participated in the care of the patient.: Yes I have reviewed all pertinent clinical information: Yes Notes (Text): 03/13/17 06:42 Agree with history , physical examination, assessment and plan. Seen when she was in the ER in room # 11.
--- NOTE | 2017-03-13 09:00 | RAD ---
PROCEDURE: Right Ankle Radiographs. HISTORY: ankle pain COMPARISON: None FINDINGS: BONES: The study is limited two views. An AP view was not obtained. The patient was unable to invert ankle. There is a questionable nondisplaced transverse fracture of the lateral malleolus JOINTS: Normal. No osteoarthritis. Ankle mortise maintained. Talar dome intact SOFT TISSUES: Soft tissue swelling over the lateral malleolus OTHER FINDINGS: None. IMPRESSION: Questionable nondisplaced transverse fracture of the lateral malleolus
--- NOTE | 2017-03-13 09:01 | RAD ---
HISTORY: fall/syncope/dizziness COMPARISON: No prior. FINDINGS: LUNGS: No active pulmonary disease. PLEURA: No significant pleural effusion identified, no pneumothorax apparent. CARDIOVASCULAR: The heart is normal in size. There is mild vascular congestion left greater than right OSSEOUS STRUCTURES: No significant abnormalities. VISUALIZED UPPER ABDOMEN: Normal. OTHER FINDINGS: None. IMPRESSION: Mild vascular congestion
--- NOTE | 2017-03-13 09:03 | RAD ---
PROCEDURE: Left Ankle Radiographs. HISTORY: fall, ankle pain COMPARISON: None FINDINGS: BONES: Normal. No fracture. JOINTS: Normal. No osteoarthritis. Ankle mortise maintained. Talar dome intact SOFT TISSUES: Soft tissue swelling over the lateral malleolus OTHER FINDINGS: None. IMPRESSION: Soft tissue swelling with no evidence of fracture
--- NOTE | 2017-03-13 09:06 | RAD ---
PROCEDURE: Right Hand Radiographs. HISTORY: injury COMPARISON: None. FINDINGS: BONES: Normal. No fracture. JOINTS: Normal. No osteoarthritic changes. SOFT TISSUES: Normal. OTHER FINDINGS: None. IMPRESSION: Negative study
[2017-03-13] MEDS: Clotrimazole 1% Cream(30 gm) TOP SCH ×2 (11:00→17:20)
[2017-03-13] MEDS: Cholecalciferol 1,000 INTLU TAB PO SCH (11:17)
[2017-03-13] MEDS: Divalproex 250 mg DR (BID formulation) PO SCH ×2 (11:18→17:19)
[2017-03-13] MEDS: Levothyroxine 75 MCG TAB PO SCH (11:18)
--- NOTE | 2017-03-13 16:20 | CARD ---
APPROVED REPORT EKG Measurement Heart [id number] MD [id number] <Conclusion> Normal sinus rhythm Incomplete right bundle branch block Prolonged QT Abnormal ECG
--- NOTE | 2017-03-14 04:46 | CON ---
ORTHOPEDIC REPORT DATE: 03/13/2017 LOCATION: She is currently in room 270, bed 1. HISTORY OF PRESENT ILLNESS: The patient has trisomy with Down syndrome. I had seen her in the past with all the multiple fractures periodically for at least 10 years or so. She lives in a retirement. She fell again today before admission sustaining nondisplaced fracture of lateral malleolus of her right ankle which is stable and compatible with ambulation as long as we get her in a good fracture boot. Right now, she is in a posterior splint, but I will try to make arrangements to get a well-fitting fracture boot for her right ankle fracture. No other injuries are noted. Her bones are fine in the rest of the extremities and her knees are fine. FINAL DIAGNOSIS: Stable lateral malleolar fracture of right ankle compatible with ____ walking boot and she needs a closer care for the next 6 weeks. Salvador Garcia DO RONNIE
[2017-03-14] MEDS: Levothyroxine 88 MCG TAB PO SCH (05:46)
[2017-03-14 06:06] LABS: BASO # 0.04 K/mm3 (0.0-2.0); BASO % 1.2 % (0.0-3.0); EOS # 0.1 (0.0-0.7); EOS % 2.6 % (1.5-5.0); GRAN # 1.6 (1.4-6.5); GRAN % 46.5 % (50.0-68.0); HEMATOCRIT 33.5 % (36.0-48.0); LYMPH # 1.4 (1.2-3.4); LYMPH % 41.6 % (22.0-35.0); MEAN CORPUSCULAR HEMOGLOBIN 29.8 pg (25.0-35.0); MONO # 0.3 (0.1-0.6); MONO % 8.1 % (1.0-6.0); RED CELL DISTRIBUTION WIDTH 18.5 % (11.5-14.5); WHITE BLOOD COUNT 3.4 10^3/ul (4.5-11.0)
[2017-03-14 06:19] LABS: ALB/GLOB RATIO 1.1 (1.1-1.8); ALKALINE PHOSPHATASE 99 U/L (38-126); ALT/SGPT 21 U/L (7-56); AST/SGOT 19 U/L (14-36); BILIRUBIN,TOTAL 0.3 mg/dL (0.2-1.3); BLOOD UREA NITROGEN 14 mg/dL (7-21); CALCIUM 8.4 mg/dL (8.4-10.5); CARBON DIOXIDE 28 mmol/L (21-33); CHLORIDE 106 mmol/L (98-107); GFR AFRICAN-AMERICAN > 60; GLUCOSE,RANDOM 106 mg/dL (70-110); POTASSIUM 3.7 mmol/L (3.6-5.0); SODIUM 141 mmol/L (132-148)
[2017-03-14] MEDS: Levothyroxine 75 MCG TAB PO SCH (07:45)
[2017-03-14] MEDS: Clotrimazole 1% Cream(30 gm) TOP SCH ×2 (10:15→17:30)
[2017-03-14] MEDS: Cholecalciferol 1,000 INTLU TAB PO SCH (10:16)
[2017-03-14] MEDS: Divalproex 250 mg DR (BID formulation) PO SCH ×2 (10:16→17:30)
--- NOTE | 2017-03-14 16:39 | CP.PCM.PN ---
<MikaelProsper - Last Filed: 03/14/17 16:35> Subjective - Date & Time of Evaluation Date of Evaluation: 03/14/17 Time of Evaluation: 07:30 - Subjective Subjective: Prosper Youssef DO PGY1 - Internal Medicine Progress Note Patient seen and examined at bedside. No events overnight. Patient is lying in bed, requesting more pancakes and quiroga. She denies any chest pain, shortness of breath, abdominal pain. She is not complaining of ankle pain. She has not yet been seen by physical therapy. Objective - Vital Signs/Intake and Output Vital Signs (last 24 hours): Temp Pulse Resp BP Pulse Ox 98.1 F 84 20 123/51 L 97 03/14/17 11:58 03/14/17 14:00 03/14/17 11:58 03/14/17 11:58 03/14/17 09:00 Intake and Output: 03/14/17 03/14/17 06:59 18:59 Intake Total 600 Balance 600 - Medications Medications: Current Medications Acetaminophen (Tylenol 325mg Tab) 650 mg PO Q4 PRN PRN Reason: Pain, moderate (4-7) Aspirin (Ecotrin) 81 mg PO DAILY [facility] Last Admin: 03/14/17 10:17 Dose: 81 mg Calcium Carbonate (Oscal) 500 mg PO DAILY [facility] Last Admin: 03/14/17 10:16 Dose: 500 mg Cholecalciferol (Vitamin D) 1,000 iu PO DAILY [facility] Last Admin: 03/14/17 10:16 Dose: 1,000 iu Clonazepam (Klonopin) 0.5 mg PO Q12 [facility] PRN Reason: Protocol Last Admin: 03/14/17 10:16 Dose: 0.5 mg Clotrimazole (Lotrimin 1%) 0 gm TOP BID [facility] Last Admin: 03/14/17 10:15 Dose: 2 applic Colchicine (Colocrys) 0.6 mg PO DAILY [facility] Last Admin: 03/14/17 10:17 Dose: 0.6 mg Divalproex Sodium (Depakote Dr (*Bid*)) 250 mg PO BID [facility] PRN Reason: Protocol Last Admin: 03/14/17 10:16 Dose: 250 mg Donepezil HCl (Aricept) 10 mg PO HS [facility] Last Admin: 03/13/17 21:40 Dose: 10 mg Escitalopram Oxalate (Lexapro) 10 mg PO DAILY [facility] Last Admin: 03/14/17 10:17 Dose: 10 mg Famotidine (Pepcid) 20 mg PO DAILY [facility] Last Admin: 03/14/17 10:17 Dose: 20 mg Heparin Sodium (Porcine) (Heparin) 5,000 units SC Q12 [facility] PRN Reason: Protocol Last Admin: 03/14/17 10:16 Dose: 5,000 units Levothyroxine Sodium (Synthroid) 75 mcg PO ACB [facility] Last Admin: 03/14/17 07:45 Dose: Not Given Levothyroxine Sodium (Synthroid) 88 mcg PO 0600 [facility] Last Admin: 03/14/17 05:46 Dose: 88 mcg Quetiapine Fumarate (Seroquel) 100 mg PO DAILY [facility] PRN Reason: Protocol Last Admin: 03/14/17 10:17 Dose: 100 mg - Labs Labs: 03/14/17 05:00 03/14/17 05:00 - Constitutional Appears: Non-toxic, No Acute Distress - Head Exam Head Exam: ATRAUMATIC, NORMOCEPHALIC - Eye Exam Eye Exam: EOMI, Normal appearance Additional comments: amblyopia - ENT Exam ENT Exam: Mucous Membranes Moist - Neck Exam Neck Exam: Normal Inspection - Respiratory Exam Respiratory Exam: Clear to Ausculation Bilateral, NORMAL BREATHING PATTERN - Cardiovascular Exam Cardiovascular Exam: REGULAR RHYTHM, +S1, +S2 - GI/Abdominal Exam GI & Abdominal Exam: Soft, Normal Bowel Sounds. absent: Tenderness - Extremities Exam Extremities Exam: absent: Calf Tenderness, Pedal Edema Additional comments: RLE with splint in place - Neurological Exam Neurological Exam: Alert, Awake, Oriented x3 - Psychiatric Exam Psychiatric exam: Normal Affect, Normal Mood - Skin Skin Exam: Dry, Intact Assessment and Plan - Assessment and Plan (Free Text) Assessment: Pt is a 57 year old female w/ a PMHx of Trisomy 21, CVA, obesity, gout, hypotension, hypothyroidism, sleep apnea, CKD, GERD, antisocial personality disorder, mood disorder, gout was brought in by care provider after finding her next to her bed s/p presumed mechanical fall without any loss of consciousness. Fall - Likely 2/2 polypharmacy vs advanced neurocognitive decline in patient with trisomy 21 Down Syndrome - head CT- No intracranial hemorrhage. Nonspecific white matter changes. - cervical spine CT- no acute fracture - thoracic spine CT- no acute fracture, mild spondylosis, no significant spinal stenosis. - Right ankle with questionable nondisplaced transverse tracture of the lateral malleolus - Left ankle with soft tissue swelling with no evidence of fracture - Right hand XR negative - high risk fall precautions and 1:1 - pain control with tylenol - physical therapy evaluation and treatment; pending - Ortho on consult; Recommends walking boot and physical therapy for stable lateral malleolar fracture of right ankle h/o CKD - creatinine and Bun stable - avoid nephrotoxins Anemia - Mild decrease in Hgb; no signs of acute bleeding; VSS - MCV is normocytic, elevated RDW - FOBT pending - Continue to monitor - Iron studies, folate, B12 ordered with AM labs Hx of CVA - c/w aspirin Hx of Gout - continue allopurinol Hx of Hypothyroidism - continue synthroid - TSH elevated with low/normal free T4 - Called caregiver to confirm dose of synthroid; will call back with med list tomorrow Antisocial personality disorder, Mood disorder - no acute behavioral problems - continue home meds Prophylaxis - DVT ppx- subq heparin as per jeana score - GI ppx- famotidine Patient seen, discussed, and reviewed with attending <Genaro Spangler - Last Filed: 03/14/17 18:16> Objective - Vital Signs/Intake and Output Vital Signs (last 24 hours): Temp Pulse Resp BP Pulse Ox 98.1 F 84 20 123/51 L 97 03/14/17 11:58 03/14/17 14:00 03/14/17 11:58 03/14/17 11:58 03/14/17 09:00 Intake and Output: 03/14/17 03/14/17 06:59 18:59 Intake Total 600 Balance 600 - Medications Medications: Current Medications Acetaminophen (Tylenol 325mg Tab) 650 mg PO Q4 PRN PRN Reason: Pain, moderate (4-7) Aspirin (Ecotrin) 81 mg PO DAILY [facility] Last Admin: 03/14/17 10:17 Dose: 81 mg Calcium Carbonate (Oscal) 500 mg PO DAILY [facility] Last Admin: 03/14/17 10:16 Dose: 500 mg Cholecalciferol (Vitamin D) 1,000 iu PO DAILY [facility] Last Admin: 03/14/17 10:16 Dose: 1,000 iu Clonazepam (Klonopin) 0.5 mg PO Q12 [facility] PRN Reason: Protocol Last Admin: 03/14/17 10:16 Dose: 0.5 mg Clotrimazole (Lotrimin 1%) 0 gm TOP BID [facility] Last Admin: 03/14/17 17:30 Dose: 2 applic Colchicine (Colocrys) 0.6 mg PO DAILY [facility] Last Admin: 03/14/17 10:17 Dose: 0.6 mg Divalproex Sodium (Depakote Dr (*Bid*)) 250 mg PO BID [facility] PRN Reason: Protocol Last Admin: 03/14/17 17:30 Dose: 250 mg Donepezil HCl (Aricept) 10 mg PO HS [facility] Last Admin: 03/13/17 21:40 Dose: 10 mg Escitalopram Oxalate (Lexapro) 10 mg PO DAILY [facility] Last Admin: 03/14/17 10:17 Dose: 10 mg Famotidine (Pepcid) 20 mg PO DAILY [facility] Last Admin: 03/14/17 10:17 Dose: 20 mg Heparin Sodium (Porcine) (Heparin) 5,000 units SC Q12 [facility] PRN Reason: Protocol Last Admin: 03/14/17 10:16 Dose: 5,000 units Levothyroxine Sodium (Synthroid) 75 mcg PO ACB [facility] Last Admin: 03/14/17 07:45 Dose: Not Given Levothyroxine Sodium (Synthroid) 88 mcg PO 0600 [facility] Last Admin: 03/14/17 05:46 Dose: 88 mcg Quetiapine Fumarate (Seroquel) 100 mg PO DAILY [facility] PRN Reason: Protocol Last Admin: 03/14/17 10:17 Dose: 100 mg - Labs Labs: 03/14/17 05:00 03/14/17 05:00 Attending/Attestation - Attestation I have personally seen and examined this patient.: Yes I have fully participated in the care of the patient.: Yes I have reviewed all pertinent clinical information, including history, physical exam and plan: Yes Notes (Text): 03/14/17 18:11 57 year old female with past medical history of CVA, Trisomy 21, hypothyroidism and mood disorder who presented s/p mechanical fall. She was found to have nondisplaced transverse fracture of the lateral right malleolus fracture s/p splint in ER. Orthopedics evaluation was appreciated; recommending walking boot. PT evaluation is pending. TSH was elevated with normal FT4. Will confirm home dose of synthroid and adjust dose accordingly. Genaro Spangler MD Hospitalist.
[2017-03-15] MEDS: Levothyroxine 88 MCG TAB PO SCH (05:18)
[2017-03-15 06:52] LABS: BASO # 0.05 K/mm3 (0.0-2.0); BASO % 1.5 % (0.0-3.0); EOS # 0.2 (0.0-0.7); EOS % 4.7 % (1.5-5.0); GRAN # 1.86 (1.4-6.5); HEMATOCRIT 31.9 % (36.0-48.0); LYMPH % 30.8 % (22.0-35.0); MEAN CORPUSCULAR HEMOGLOBIN 30.1 pg (25.0-35.0); MEAN PLATELET VOLUME 10.9 fl (7.0-11.0); MONO # 0.3 (0.1-0.6); WHITE BLOOD COUNT 3.4 10^3/ul (4.5-11.0)
[2017-03-15 07:02] LABS: IRON 28 ug/dL (45-180)
[2017-03-15 07:10] LABS: ALB/GLOB RATIO 1.1 (1.1-1.8); ALKALINE PHOSPHATASE 112 U/L (38-126); ALT/SGPT 25 U/L (7-56); AST/SGOT 18 U/L (14-36); BILIRUBIN,TOTAL 0.2 mg/dL (0.2-1.3); BLOOD UREA NITROGEN 16 mg/dL (7-21); CALCIUM 8.4 mg/dL (8.4-10.5); CARBON DIOXIDE 30 mmol/L (21-33); CHLORIDE 107 mmol/L (98-107); GFR AFRICAN-AMERICAN > 60; GLUCOSE,RANDOM 134 mg/dL (70-110); POTASSIUM 3.8 mmol/L (3.6-5.0); SODIUM 143 mmol/L (132-148); TOTAL PROTEIN 5.5 g/dL (5.8-8.3)
[2017-03-15] MEDS: Levothyroxine 75 MCG TAB PO SCH (08:34)
[2017-03-15] MEDS: Cholecalciferol 1,000 INTLU TAB PO SCH (10:07)
[2017-03-15] MEDS: Divalproex 250 mg DR (BID formulation) PO SCH ×2 (10:08→17:09)
[2017-03-15] MEDS: Clotrimazole 1% Cream(30 gm) TOP SCH ×2 (10:09→17:39)
[2017-03-15 12:12] LABS: FOLATE 11.6 ng/mL
[2017-03-15] MEDS ORDERED: Levothyroxine 88 MCG TAB PO SCH (14:12)
--- NOTE | 2017-03-15 14:16 | CP.PCM.PN ---
<Prosper Youssef - Last Filed: 03/15/17 13:50> Subjective - Date & Time of Evaluation Date of Evaluation: 03/15/17 Time of Evaluation: 07:30 - Subjective Subjective: Prosper Youssef DO PGY1 - Internal Medicine Progress Note Patient seen and examined at bedside. Patient was agitated overnight, reportedly did not get much sleep. Patient is sleepy this morning, but easily arousable and responsive to questions. She has no particular complaints. She reports that her ankle feels somewhat better. She denies any fever, chills, nausea, vomiting, diarrhea, abdominal pain, chest pain, shortness of breath. Objective - Vital Signs/Intake and Output Vital Signs (last 24 hours): Temp Pulse Resp BP Pulse Ox 97.9 F 75 18 112/67 95 03/15/17 11:50 03/15/17 11:50 03/15/17 11:50 03/15/17 11:50 03/15/17 06:00 Intake and Output: 03/15/17 03/15/17 06:59 18:59 Intake Total 300 Output Total 650 Balance -350 - Medications Medications: Current Medications Acetaminophen (Tylenol 325mg Tab) 650 mg PO Q4 PRN PRN Reason: Pain, moderate (4-7) Aspirin (Ecotrin) 81 mg PO DAILY [facility] Last Admin: 03/15/17 10:08 Dose: 81 mg Calcium Carbonate (Oscal) 500 mg PO DAILY [facility] Last Admin: 03/15/17 10:07 Dose: 500 mg Cholecalciferol (Vitamin D) 1,000 iu PO DAILY [facility] Last Admin: 03/15/17 10:07 Dose: 1,000 iu Clonazepam (Klonopin) 0.5 mg PO Q12 [facility] PRN Reason: Protocol Last Admin: 03/15/17 09:50 Dose: 0.5 mg Clotrimazole (Lotrimin 1%) 0 gm TOP BID [facility] Last Admin: 03/15/17 10:09 Dose: 1 applic Colchicine (Colocrys) 0.6 mg PO DAILY [facility] Last Admin: 03/15/17 09:51 Dose: 0.6 mg Divalproex Sodium (Depakote Dr (*Bid*)) 250 mg PO BID [facility] PRN Reason: Protocol Last Admin: 03/15/17 10:08 Dose: 250 mg Docusate Sodium (Colace) 100 mg PO DAILY [facility] Donepezil HCl (Aricept) 10 mg PO HS [facility] Last Admin: 03/14/17 21:37 Dose: 10 mg Escitalopram Oxalate (Lexapro) 10 mg PO DAILY [facility] Last Admin: 03/15/17 09:51 Dose: 10 mg Famotidine (Pepcid) 20 mg PO DAILY [facility] Last Admin: 03/15/17 09:51 Dose: 20 mg Ferrous Sulfate (Feosol) 324 mg PO TID [facility] Last Admin: 03/15/17 13:12 Dose: 324 mg Heparin Sodium (Porcine) (Heparin) 5,000 units SC Q12 [facility] PRN Reason: Protocol Last Admin: 03/15/17 10:08 Dose: 5,000 units Levothyroxine Sodium (Synthroid) 88 mcg PO 0600 [facility] Last Admin: 03/15/17 05:18 Dose: 88 mcg Quetiapine Fumarate (Seroquel) 100 mg PO DAILY [facility] PRN Reason: Protocol Last Admin: 03/15/17 10:07 Dose: 100 mg - Labs Labs: 03/15/17 06:00 03/15/17 06:00 - Constitutional Appears: Non-toxic, No Acute Distress, Chronically Ill - Head Exam Head Exam: ATRAUMATIC, NORMOCEPHALIC - Eye Exam Eye Exam: EOMI, Normal appearance, PERRL - ENT Exam ENT Exam: Mucous Membranes Moist - Respiratory Exam Respiratory Exam: Clear to Ausculation Bilateral, NORMAL BREATHING PATTERN - Cardiovascular Exam Cardiovascular Exam: RRR, +S1, +S2 - GI/Abdominal Exam GI & Abdominal Exam: Soft, Normal Bowel Sounds. absent: Tenderness - Extremities Exam Extremities Exam: absent: Calf Tenderness, Pedal Edema Additional comments: RLE dressed in splint - Neurological Exam Neurological Exam: Alert, Awake, Oriented x3 - Psychiatric Exam Psychiatric exam: Normal Affect, Normal Mood - Skin Skin Exam: Dry, Intact Assessment and Plan - Assessment and Plan (Free Text) Assessment: Pt is a 57 year old female w/ a PMHx of Trisomy 21, CVA, obesity, gout, hypotension, hypothyroidism, sleep apnea, CKD, GERD, antisocial personality disorder, mood disorder, gout was brought in by care provider after finding her next to her bed s/p presumed mechanical fall without any loss of consciousness. Fall - Likely 2/2 polypharmacy vs advanced neurocognitive decline in patient with trisomy 21 Down Syndrome - CT Head negative - Right ankle with questionable nondisplaced transverse tracture of the lateral malleolus - Left ankle with soft tissue swelling with no evidence of fracture - Right hand XR negative - high risk fall precautions and 1:1 - physical therapy evaluation and treatment; pending - B12 and folate normal - Neurology consult requested; appreciate recs - Ortho on consult; Recommends walking boot and physical therapy for stable lateral malleolar fracture of right ankle Anemia - Persistent mild decrease in Hgb; no signs of acute bleeding; VSS - MCV is normocytic, elevated RDW - FOBT pending - Iron studies show low serum iron, normal ferritin - Folate, B12 normal - Continue to monitor; consider GI evaluation if FOBT positive or if continues to downtrend Hx of CVA - c/w aspirin Hx of Gout - continue allopurinol Hx of Hypothyroidism - continue synthroid - TSH elevated with low/normal free T4 - Confirmed 88mcg dose synthroid; will increase to 100mcg Antisocial personality disorder, Mood disorder - no acute behavioral problems - continue home meds GI/DVT Ppx - Heparin, Pepcid Patient seen, discussed, and reviewed with attending <Genaro Spangler - Last Filed: 03/15/17 14:43> Objective - Vital Signs/Intake and Output Vital Signs (last 24 hours): Temp Pulse Resp BP Pulse Ox 97.9 F 75 18 112/67 95 03/15/17 11:50 03/15/17 11:50 03/15/17 11:50 03/15/17 11:50 03/15/17 06:00 Intake and Output: 03/15/17 03/15/17 06:59 18:59 Intake Total 300 Output Total 650 Balance -350 - Medications Medications: Current Medications Acetaminophen (Tylenol 325mg Tab) 650 mg PO Q4 PRN PRN Reason: Pain, moderate (4-7) Aspirin (Ecotrin) 81 mg PO DAILY [facility] Last Admin: 03/15/17 10:08 Dose: 81 mg Calcium Carbonate (Oscal) 500 mg PO DAILY [facility] Last Admin: 03/15/17 10:07 Dose: 500 mg Cholecalciferol (Vitamin D) 1,000 iu PO DAILY [facility] Last Admin: 03/15/17 10:07 Dose: 1,000 iu Clonazepam (Klonopin) 0.5 mg PO Q12 [facility] PRN Reason: Protocol Last Admin: 03/15/17 09:50 Dose: 0.5 mg Clotrimazole (Lotrimin 1%) 0 gm TOP BID [facility] Last Admin: 03/15/17 10:09 Dose: 1 applic Colchicine (Colocrys) 0.6 mg PO DAILY [facility] Last Admin: 03/15/17 09:51 Dose: 0.6 mg Divalproex Sodium (Depakote Dr (*Bid*)) 250 mg PO BID [facility] PRN Reason: Protocol Last Admin: 03/15/17 10:08 Dose: 250 mg Docusate Sodium (Colace) 100 mg PO DAILY [facility] Donepezil HCl (Aricept) 10 mg PO HS [facility] Last Admin: 03/14/17 21:37 Dose: 10 mg Escitalopram Oxalate (Lexapro) 10 mg PO DAILY [facility] Last Admin: 03/15/17 09:51 Dose: 10 mg Famotidine (Pepcid) 20 mg PO DAILY [facility] Last Admin: 03/15/17 09:51 Dose: 20 mg Ferrous Sulfate (Feosol) 324 mg PO TID [facility] Last Admin: 03/15/17 13:12 Dose: 324 mg Heparin Sodium (Porcine) (Heparin) 5,000 units SC Q12 [facility] PRN Reason: Protocol Last Admin: 03/15/17 10:08 Dose: 5,000 units Levothyroxine Sodium (Synthroid) 88 mcg PO 0600 [facility] Quetiapine Fumarate (Seroquel) 100 mg PO DAILY [facility] PRN Reason: Protocol Last Admin: 03/15/17 10:07 Dose: 100 mg - Labs Labs: 03/15/17 06:00 03/15/17 06:00 Attending/Attestation - Attestation I have personally seen and examined this patient.: Yes I have fully participated in the care of the patient.: Yes I have reviewed all pertinent clinical information, including history, physical exam and plan: Yes Notes (Text): 03/15/17 14:37 57 year old female with past medical history of CVA, Trisomy 21, hypothyroidism and mood disorder who presented s/p mechanical fall. She was found to have nondisplaced transverse fracture of the lateral right malleolus fracture s/p splint. Orthopedics and PT evaluation were appreciated. Supervisor [facility] reports frequent falls at nursing home recently. Neurology evaluation is requested. TSH was elevated and her synthroid dose was adjusted today. Genaro Spangler MD Hospitalist.
[2017-03-15] MEDS ORDERED: Levothyroxine 88 MCG TAB PO ONE ×2 (14:30)
[2017-03-15 20:41] LABS: URINE APPEARANCE CLEAR (CLEAR); URINE BILIRUBIN NEGATIVE (NEGATIVE); URINE BLOOD NEGATIVE (NEGATIVE); URINE COLOR YELLOW (YELLOW); URINE GLUCOSE (UA) NEGATIVE (NEGATIVE); URINE KETONE NEGATIVE (NEGATIVE); URINE LEUKOCYTE ESTERASE NEGATIVE Leu/uL (NEGATIVE); URINE PROTEIN NEGATIVE mg/dL (<30 mg/dL); URINE UROBILINOGEN 0.2 E.U./dL (<1 E.U./dL)
--- NOTE | 2017-03-15 23:30 | CON ---
DATE: NEUROLOGY CONSULTATION REPORT REASON FOR CONSULTATION: Gait disturbance/falls. HISTORY OF PRESENT ILLNESS: The patient is a 57-year-old female, who has been asked for evaluation of gait dysfunction and falls. The patient was brought to the hospital after provider found her next to her bed. Apparently, the patient had mechanical fall with no loss of consciousness. The patient does not remember what happened. Apparently, the patient had multiple falls in the past and difficulty with balance every time she tries to stand up. She denies any focal weakness in the arms or legs. PAST MEDICAL HISTORY: Includes Down syndrome, gout, hypertension, hypothyroidism, sleep apnea, and GERD. MEDICATIONS AT HOME: Included vitamin B complex, Seroquel, levothyroxine, ibuprofen, famotidine, colchicine, clonazepam, and allopurinol. ALLERGIES: FISH AND PEACHES. SOCIAL HISTORY: The patient is nonsmoker, nonalcoholic. She does not use any elicit drugs. FAMILY HISTORY: Reviewed and noncontributory to the case. PHYSICAL EXAMINATION: GENERAL: The patient is an middle aged female, lying on the bed in no acute distress. VITAL SIGNS: Her blood pressure is 98/55, heart rate is 71 per minute, breathing at the rate of 16 per minute, temperature 97.5 degrees Fahrenheit. HEENT: Head is normocephalic and atraumatic. NECK: Supple. She has mongoloid features. LUNGS: Clear. CARDIOVASCULAR SYSTEM: S1 and S2 audible. No murmurs. ABDOMEN: Soft and nontender. Bowel sounds are present. NEUROLOGIC: Mental status, the patient is awake and alert. She does not know the year or the month. She follow simple commands. Cranial nerve examination: Pupils are 3 mm bilaterally reactive to light. The right eye is deviated medially on primary gaze. There is decrease nasolabial fold on the left side. Motor examination: Tone is normal. She is moving all 4 extremities. Power appears to be 4-5/5 all overall. Reflexes are +2 and symmetrical. Plantars are downgoing bilaterally. Gait is deferred at the moment because of the right leg sprain and right leg in the VAL bandage. LABORATORY DATA: Reviewed. Shows WBC of 3.4, hemoglobin of 9.9, hematocrit 31.9, and platelets of 236. Sodium is 143, potassium 3.8, chloride 107, carbon dioxide 30, BUN of 16, creatinine 1.0, glucose of 134. She had a CT scan of the head done, which shows no acute intracranial pathology, nonspecific white matter changes. She had CT scan of the thoracic spine shows no fracture. Also has of the cervical spine, which shows no fracture. IMPRESSION: Gait dysfunction with falls, possibly secondary to her underlying Down syndrome. RECOMMENDATIONS: 1. We will obtain MRI to look for any focal pathology. 2. The patient to have an electroencephalogram. 3. Please continue supportive care and start Physical Therapy for gait imbalance as once her right leg sprain improves. 4. Please continue supportive care and other treatment. Thank you for the opportunity to participate in the care of this patient. Casper Katz MD
[2017-03-16] MEDS: Levothyroxine 88 MCG TAB PO SCH (05:21)
[2017-03-16] MEDS ORDERED: Levothyroxine 88 MCG TAB PO SCH (07:30)
[2017-03-16] MEDS: Divalproex 250 mg DR (BID formulation) PO SCH ×2 (10:18→18:43)
[2017-03-16] MEDS: Cholecalciferol 1,000 INTLU TAB PO SCH (10:19)
--- NOTE | 2017-03-16 11:02 | CP.PCM.PN ---
<Alyssa Mosqueda - Last Filed: 03/16/17 13:48> Subjective - Date & Time of Evaluation Date of Evaluation: 03/16/17 Time of Evaluation: 07:25 - Subjective Subjective: Alyssa Mosqueda DO, PGY-1: Hospitalist Service Patient seen and examined at bedside. Patient is eating and conversing fine. She has no complaints at this time. Chart review notes that patient became somewhat frustrated and PRN Ativan was administered. Patient today is calm and displays no aggression or agitation. Patient's right ankle is still splinted. Podiatry consulted for boot fitting and high school social science teacher spoken to in regards to subacute rehabilitation for the patient. Objective - Vital Signs/Intake and Output Vital Signs (last 24 hours): Temp Pulse Resp BP Pulse Ox 97.9 F 72 20 126/71 97 03/16/17 05:35 03/16/17 05:35 03/16/17 05:35 03/16/17 05:35 03/16/17 05:35 Intake and Output: 03/16/17 03/16/17 06:59 18:59 Intake Total 120 Output Total 0 Balance 120 - Medications Medications: Current Medications Acetaminophen (Tylenol 325mg Tab) 650 mg PO Q4 PRN PRN Reason: Pain, moderate (4-7) Aspirin (Ecotrin) 81 mg PO DAILY [facility] Last Admin: 03/16/17 10:19 Dose: 81 mg Calcium Carbonate (Oscal) 500 mg PO DAILY [facility] Last Admin: 03/16/17 10:18 Dose: 500 mg Cholecalciferol (Vitamin D) 1,000 iu PO DAILY [facility] Last Admin: 03/16/17 10:19 Dose: 1,000 iu Clonazepam (Klonopin) 0.5 mg PO Q12 [facility] PRN Reason: Protocol Last Admin: 03/16/17 10:19 Dose: 0.5 mg Clotrimazole (Lotrimin 1%) 0 gm TOP BID [facility] Last Admin: 03/15/17 17:39 Dose: Not Given Colchicine (Colocrys) 0.6 mg PO DAILY [facility] Last Admin: 03/16/17 10:18 Dose: 0.6 mg Divalproex Sodium (Depakote Dr (*Bid*)) 250 mg PO BID [facility] PRN Reason: Protocol Last Admin: 03/16/17 10:18 Dose: 250 mg Docusate Sodium (Colace) 100 mg PO DAILY [facility] Last Admin: 03/16/17 10:19 Dose: 100 mg Donepezil HCl (Aricept) 10 mg PO HS [facility] Last Admin: 03/15/17 20:59 Dose: 10 mg Escitalopram Oxalate (Lexapro) 10 mg PO DAILY [facility] Last Admin: 03/16/17 10:18 Dose: 10 mg Famotidine (Pepcid) 20 mg PO DAILY [facility] Last Admin: 03/16/17 10:19 Dose: 20 mg Ferrous Sulfate (Feosol) 324 mg PO TID [facility] Last Admin: 03/16/17 10:18 Dose: 324 mg Heparin Sodium (Porcine) (Heparin) 5,000 units SC Q12 [facility] PRN Reason: Protocol Last Admin: 03/15/17 20:59 Dose: 5,000 units Levothyroxine Sodium (Synthroid) 88 mcg PO 0600 [facility] Last Admin: 03/16/17 05:21 Dose: 88 mcg Quetiapine Fumarate (Seroquel) 100 mg PO DAILY [facility] PRN Reason: Protocol Last Admin: 03/16/17 10:19 Dose: 100 mg - Labs Labs: 03/15/17 06:00 03/15/17 06:00 - Constitutional Appears: Well, Non-toxic - Head Exam Head Exam: ATRAUMATIC, NORMAL INSPECTION - Eye Exam Additional comments: strabismus - ENT Exam ENT Exam: Mucous Membranes Moist, Normal Oropharynx - Neck Exam Neck Exam: Normal Inspection - Respiratory Exam Respiratory Exam: Clear to Ausculation Bilateral, NORMAL BREATHING PATTERN - Cardiovascular Exam Cardiovascular Exam: RRR, +S1, +S2 - GI/Abdominal Exam GI & Abdominal Exam: Soft, Normal Bowel Sounds - Extremities Exam Additional comments: right lower extremity is splinted; sensation intact and equal to bilateral lower extremities - Neurological Exam Neurological Exam: Alert, Awake - Psychiatric Exam Psychiatric exam: Normal Affect, Normal Mood - Skin Skin Exam: Dry, Intact, Normal Color, Warm Assessment and Plan - Assessment and Plan (Free Text) Assessment: Pt is a 57 year old female w/ a PMHx of Trisomy 21, CVA, obesity, gout, hypotension, hypothyroidism, sleep apnea, CKD, GERD, antisocial personality disorder, mood disorder, gout was brought in by care provider after finding her next to her bed s/p presumed mechanical fall without any loss of consciousness. Fall - Likely 2/2 polypharmacy vs advanced neurocognitive decline in patient with trisomy 21 Down Syndrome - CT Head negative - Right ankle with questionable nondisplaced transverse tracture of the lateral malleolus - Left ankle with soft tissue swelling with no evidence of fracture - Right hand XR negative - high risk fall precautions and 1:1 - physical therapy and social work recommend at (group) home with services. - B12 and folate normal - Neurology consult requested; appreciate recs - Ortho on consult; Recommends walking boot and physical therapy for stable lateral malleolar fracture of right ankle Anemia - Persistent mild decrease in Hgb; no signs of acute bleeding; VSS - MCV is normocytic, elevated RDW - FOBT pending - Iron studies show low serum iron, normal ferritin - Folate, B12 normal - Continue to monitor; consider GI evaluation if FOBT positive or if continues to downtrend Hx of CVA - c/w aspirin Hx of Gout - continue allopurinol Hx of Hypothyroidism - continue synthroid - TSH elevated with low/normal free T4 - Confirmed 88mcg dose synthroid; will increase to 100mcg Down's syndrome and advanced age - no acute behavioral problems - continue home meds GI/DVT Ppx - Heparin, Pepcid Disposition: Once patient has right walking boot fitted by podiatry, she will be able to be discharged. <Brit Wen - Last Filed: 03/17/17 14:01> Objective - Vital Signs/Intake and Output Vital Signs (last 24 hours): Temp Pulse Resp BP Pulse Ox 97.8 F 66 18 112/62 97 03/17/17 07:30 03/17/17 07:30 03/17/17 07:30 03/17/17 07:30 03/17/17 07:30 Intake and Output: 03/17/17 03/17/17 06:59 18:59 Intake Total 680 Balance 680 - Medications Medications: Current Medications Acetaminophen (Tylenol 325mg Tab) 650 mg PO Q4 PRN PRN Reason: Pain, moderate (4-7) Last Admin: 03/17/17 10:47 Dose: 650 mg Aspirin (Ecotrin) 81 mg PO DAILY [facility] Last Admin: 03/17/17 10:42 Dose: 81 mg Calcium Carbonate (Oscal) 500 mg PO DAILY [facility] Last Admin: 03/17/17 10:42 Dose: 500 mg Cholecalciferol (Vitamin D) 1,000 iu PO DAILY [facility] Last Admin: 03/17/17 10:43 Dose: 1,000 iu Clonazepam (Klonopin) 0.5 mg PO HS [facility] PRN Reason: Protocol Clotrimazole (Lotrimin 1%) 0 gm TOP BID [facility] Last Admin: 03/17/17 10:43 Dose: 1 applic Colchicine (Colocrys) 0.6 mg PO DAILY [facility] Last Admin: 03/17/17 10:41 Dose: 0.6 mg Divalproex Sodium (Depakote Dr (*Bid*)) 250 mg PO BID [facility] PRN Reason: Protocol Last Admin: 03/17/17 10:42 Dose: 250 mg Docusate Sodium (Colace) 100 mg PO DAILY [facility] Last Admin: 03/17/17 10:42 Dose: 100 mg Donepezil HCl (Aricept) 10 mg PO HS [facility] Last Admin: 03/16/17 23:22 Dose: 10 mg Escitalopram Oxalate (Lexapro) 10 mg PO DAILY [facility] Last Admin: 03/17/17 10:42 Dose: 10 mg Famotidine (Pepcid) 20 mg PO DAILY [facility] Last Admin: 03/17/17 10:41 Dose: 20 mg Ferrous Sulfate (Feosol) 324 mg PO TID [facility] Last Admin: 03/17/17 10:41 Dose: 324 mg Heparin Sodium (Porcine) (Heparin) 5,000 units SC Q12 [facility] PRN Reason: Protocol Last Admin: 03/17/17 10:42 Dose: 5,000 units Levothyroxine Sodium (Synthroid) 88 mcg PO 0600 [facility] Last Admin: 03/17/17 06:07 Dose: 88 mcg Quetiapine Fumarate (Seroquel) 100 mg PO DAILY [facility] PRN Reason: Protocol Last Admin: 03/17/17 10:42 Dose: 100 mg - Labs Labs: 03/17/17 07:00 03/17/17 07:00 Attending/Attestation - Attestation I have personally seen and examined this patient.: Yes I have fully participated in the care of the patient.: Yes I have reviewed all pertinent clinical information, including history, physical exam and plan: Yes Notes (Text): 03/17/17 14:00 Patient was seen and examined with certified court/medical interpreter. 57 year old female with past medical history of CVA, Trisomy 21, hypothyroidism and mood disorder who presented s/p mechanical fall. She was found to have nondisplaced transverse fracture of the lateral right malleolus fracture s/p splint. Orthopedics and PT evaluation were appreciated.Patient is awaiting for special boot for foot prior to discharge. 03/17/17 14:01
[2017-03-16] MEDS: Clotrimazole 1% Cream(30 gm) TOP SCH ×2 (11:19→18:42)
--- NOTE | 2017-03-16 16:07 | CP.PCM.PCO ---
<Guillermo Alanis - Last Filed: 03/16/17 16:01> Additional Comments - Additional Comments Additional Comments: Patient was seen and evaluated by orthopedics regarding nondisplaced fracture of right lateral malleolus; ortho states fracture is compatible with ambulation in fracture boot and they will make arrangements for obtaining boot. Podiatry was consulted on obtaining said boot. Medicine resident instructed how to order CAM walker for patient. Podiatry will sign off at this time, please reconsult if new problems arise. <Shweta Ty - Last Filed: 03/19/17 17:21> Attending/Attestation - Attestation I have personally seen and examined this patient.: Yes I have fully participated in the care of the patient.: Yes I have reviewed all pertinent clinical information: Yes
[2017-03-17] MEDS: Levothyroxine 88 MCG TAB PO SCH (06:07)
[2017-03-17 07:32] LABS: BASO # 0.06 K/mm3 (0.0-2.0); BASO % 1.7 % (0.0-3.0); EOS # 0.1 (0.0-0.7); GRAN # 1.28 (1.4-6.5); GRAN % 36.6 % (50.0-68.0); HEMATOCRIT 34.4 % (36.0-48.0); LYMPH # 1.8 (1.2-3.4); LYMPH % 50.6 % (22.0-35.0); MEAN CELL VOLUME 95.8 fl (80.0-105.0); MEAN CORPUSCULAR HEMOGLOBIN 29.5 pg (25.0-35.0); MEAN CORPUSCULAR HGB CONC 30.8 g/dl (31.0-37.0); MEAN PLATELET VOLUME 11.1 fl (7.0-11.0); MONO # 0.3 (0.1-0.6); MONO % 7.1 % (1.0-6.0); RED CELL DISTRIBUTION WIDTH 17.7 % (11.5-14.5); WHITE BLOOD COUNT 3.5 10^3/ul (4.5-11.0)
[2017-03-17 07:54] LABS: ALB/GLOB RATIO 1.1 (1.1-1.8); ALKALINE PHOSPHATASE 103 U/L (38-126); ALT/SGPT 29 U/L (7-56); AST/SGOT 21 U/L (14-36); BILIRUBIN,TOTAL 0.5 mg/dL (0.2-1.3); BLOOD UREA NITROGEN 20 mg/dL (7-21); CALCIUM 8.6 mg/dL (8.4-10.5); CARBON DIOXIDE 29 mmol/L (21-33); CHLORIDE 104 mmol/L (98-107); GFR AFRICAN-AMERICAN > 60; GLUCOSE,RANDOM 95 mg/dL (70-110); POTASSIUM 4.3 mmol/L (3.6-5.0); SODIUM 139 mmol/L (132-148); TOTAL PROTEIN 5.8 g/dL (5.8-8.3)
--- NOTE | 2017-03-17 08:45 | PN ---
DATE: 03/17/2017 LOCATION: Room 570, bed 1. SUBJECTIVE: With fractured right ankle. X-ray showed the minimally displaced lateral malleolar fracture, transverse type at the tip, very stable. We are going to get the fracture boot applied and once we do that she can put weight on her leg with help on her right side. FINAL DIAGNOSES: Stable fracture, right lateral malleolus, capable of being treated with removal of fracture boot and can put weight on it once the boot is on and ambulate with assistance. Salvador Garcia DO
[2017-03-17] MEDS: Divalproex 250 mg DR (BID formulation) PO SCH ×2 (10:42→17:33)
[2017-03-17] MEDS: Cholecalciferol 1,000 INTLU TAB PO SCH (10:43)
[2017-03-17] MEDS: Clotrimazole 1% Cream(30 gm) TOP SCH ×2 (10:43→17:32)
--- NOTE | 2017-03-17 14:46 | CP.PCM.PN ---
<Alyssa Mosqueda - Last Filed: 03/17/17 16:56> Subjective - Date & Time of Evaluation Date of Evaluation: 03/17/17 Time of Evaluation: 14:41 - Subjective Subjective: Alyssa Mosqueda DO, PGY-1: Hospitalist Service Patient seen and examined at bedside. Patient's splint was removed and right foot was placed in contracture boot as a temporizing measure. 1:1 sitter reports patient has not exhibited any aggressive behavior in the interim. Objective - Vital Signs/Intake and Output Vital Signs (last 24 hours): Temp Pulse Resp BP Pulse Ox 97.8 F 66 18 112/62 97 03/17/17 07:30 03/17/17 07:30 03/17/17 07:30 03/17/17 07:30 03/17/17 07:30 Intake and Output: 03/17/17 03/17/17 06:59 18:59 Intake Total 680 Balance 680 - Medications Medications: Current Medications Acetaminophen (Tylenol 325mg Tab) 650 mg PO Q4 PRN PRN Reason: Pain, moderate (4-7) Last Admin: 03/17/17 10:47 Dose: 650 mg Aspirin (Ecotrin) 81 mg PO DAILY [facility] Last Admin: 03/17/17 10:42 Dose: 81 mg Calcium Carbonate (Oscal) 500 mg PO DAILY [facility] Last Admin: 03/17/17 10:42 Dose: 500 mg Cholecalciferol (Vitamin D) 1,000 iu PO DAILY [facility] Last Admin: 03/17/17 10:43 Dose: 1,000 iu Clonazepam (Klonopin) 0.5 mg PO HS [facility] PRN Reason: Protocol Clotrimazole (Lotrimin 1%) 0 gm TOP BID [facility] Last Admin: 03/17/17 10:43 Dose: 1 applic Colchicine (Colocrys) 0.6 mg PO DAILY [facility] Last Admin: 03/17/17 10:41 Dose: 0.6 mg Divalproex Sodium (Depakote Dr (*Bid*)) 250 mg PO BID [facility] PRN Reason: Protocol Last Admin: 03/17/17 10:42 Dose: 250 mg Docusate Sodium (Colace) 100 mg PO DAILY [facility] Last Admin: 03/17/17 10:42 Dose: 100 mg Donepezil HCl (Aricept) 10 mg PO HS [facility] Last Admin: 03/16/17 23:22 Dose: 10 mg Escitalopram Oxalate (Lexapro) 10 mg PO DAILY [facility] Last Admin: 03/17/17 10:42 Dose: 10 mg Famotidine (Pepcid) 20 mg PO DAILY [facility] Last Admin: 03/17/17 10:41 Dose: 20 mg Ferrous Sulfate (Feosol) 324 mg PO TID [facility] Last Admin: 03/17/17 10:41 Dose: 324 mg Heparin Sodium (Porcine) (Heparin) 5,000 units SC Q12 [facility] PRN Reason: Protocol Last Admin: 03/17/17 10:42 Dose: 5,000 units Levothyroxine Sodium (Synthroid) 88 mcg PO 0600 [facility] Last Admin: 03/17/17 06:07 Dose: 88 mcg Quetiapine Fumarate (Seroquel) 100 mg PO DAILY [facility] PRN Reason: Protocol Last Admin: 03/17/17 10:42 Dose: 100 mg - Labs Labs: 03/17/17 07:00 03/17/17 07:00 - Constitutional Appears: Well, Non-toxic - Head Exam Head Exam: ATRAUMATIC, NORMOCEPHALIC - Eye Exam Eye Exam: EOMI, Normal appearance - ENT Exam ENT Exam: Mucous Membranes Moist, Normal Oropharynx - Neck Exam Neck Exam: Normal Inspection - Respiratory Exam Respiratory Exam: Clear to Ausculation Bilateral, NORMAL BREATHING PATTERN - Cardiovascular Exam Cardiovascular Exam: RRR, +S1, +S2 - GI/Abdominal Exam GI & Abdominal Exam: Soft, Normal Bowel Sounds - Extremities Exam Extremities Exam: absent: Calf Tenderness Additional comments: right lower extremity is contractured, unable to dorsiflex or plantar-flex foot. Patient is in no pain with palpation to the right medial or lateral malleoulus. - Back Exam Back Exam: absent: CVA tenderness (L), CVA tenderness (R) - Neurological Exam Neurological Exam: Alert, Awake Additional comments: Patient can raise the raise right leg and left leg, follow commands, and answer questions appropriately. - Psychiatric Exam Psychiatric exam: Normal Affect, Normal Mood - Skin Skin Exam: Dry, Intact, Normal Color, Warm Assessment and Plan - Assessment and Plan (Free Text) Assessment: 57 year old female with a past medical history of Down's syndrome, CVA, affective disorder, and gout who presented to [facility] are being found on the ground next to bed after a presumed fall without any loss of consciousness. Plan: 1) Stable lateral malleolar fracture of right ankle - Splint removed and right foot/ankle placed in contracture boot while awaiting for fracture boot. - Orthopedics recommendations appreciated 2) History of CVA - Aspirin 81 mg 3) Gout prophylaxis - Colchicine 0.6 mg PO daily 4) Hypothyroidism - Synthroid 88 mcg PO 5) Affective disorder with cognitive impairment - Lexapro 10 mg PO daily - Divalproex 250 mg BID [facility] - Donazepil 10 mg HS - Clonazepam 0.5 mg PO HS (switched from BID to just HS) - Quetipine 100 mg 6) Fungal infection in abdominal folds and perineal area - Clotrimazole 1% applied to affected area twice a day 7) Vitamin and Iron deficiency - 324 Ferrous Sulfate three times a day - Vitamin D 1,000 units daily -Calcium 500 mg PO daily 8) GI/DVT - Heparin 5,000 Units SC q12h - Famotidine 20 mg PO Daily <Brit Wen - Last Filed: 03/21/17 12:39> Objective - Vital Signs/Intake and Output Vital Signs (last 24 hours): Temp Pulse Resp BP Pulse Ox 98.2 F 83 20 93/52 L 94 L 03/20/17 18:42 03/20/17 18:42 03/20/17 18:42 03/20/17 18:42 03/20/17 18:42 Intake and Output: 03/21/17 03/21/17 06:59 18:59 Intake Total 360 Balance 360 - Labs Labs: 03/20/17 06:30 03/20/17 06:30 Attending/Attestation - Attestation I have personally seen and examined this patient.: Yes I have fully participated in the care of the patient.: Yes I have reviewed all pertinent clinical information, including history, physical exam and plan: Yes Notes (Text): 03/21/17 12:37 Patient was seen and examined with biomedical field service engineer. 57 year old female with past medical history of CVA, Trisomy 21, hypothyroidism and mood disorder was admitted with fall, found to have nondisplaced transverse fracture of the lateral right malleolus fracture , s/p splint. Orthopedics and PT evaluation were appreciated.There is no overnight issue.Patient is not very cooperative with Physical therapy due to mental retardation.Patient is awaiting for special boot for foot prior to discharge
[2017-03-18] MEDS: Levothyroxine 88 MCG TAB PO SCH (05:19)
[2017-03-18 07:18] LABS: BASO # 0.08 K/mm3 (0.0-2.0); BASO % 2.1 % (0.0-3.0); EOS # 0.1 (0.0-0.7); EOS % 2.7 % (1.5-5.0); GRAN # 1.35 (1.4-6.5); GRAN % 35.9 % (50.0-68.0); HEMATOCRIT 35.6 % (36.0-48.0); LYMPH % 53.2 % (22.0-35.0); MEAN CELL VOLUME 96.2 fl (80.0-105.0); MEAN CORPUSCULAR HEMOGLOBIN 29.5 pg (25.0-35.0); MEAN CORPUSCULAR HGB CONC 30.6 g/dl (31.0-37.0); MEAN PLATELET VOLUME 10.9 fl (7.0-11.0); MONO # 0.2 (0.1-0.6); MONO % 6.1 % (1.0-6.0); RED CELL DISTRIBUTION WIDTH 18.1 % (11.5-14.5); WHITE BLOOD COUNT 3.8 10^3/ul (4.5-11.0)
[2017-03-18 07:35] LABS: ALB/GLOB RATIO 1.1 (1.1-1.8); ALKALINE PHOSPHATASE 101 U/L (38-126); ALT/SGPT 27 U/L (7-56); AST/SGOT 19 U/L (14-36); BILIRUBIN,TOTAL 0.5 mg/dL (0.2-1.3); BLOOD UREA NITROGEN 20 mg/dL (7-21); CARBON DIOXIDE 31 mmol/L (21-33); CHLORIDE 104 mmol/L (98-107); GFR AFRICAN-AMERICAN > 60; GLUCOSE,RANDOM 87 mg/dL (70-110); POTASSIUM 4.3 mmol/L (3.6-5.0); SODIUM 140 mmol/L (132-148); TOTAL PROTEIN 5.9 g/dL (5.8-8.3)
--- NOTE | 2017-03-18 07:44 | EEG ---
DATE: 03/17/2017 INTRODUCTION: This is a digitally recorded EEG monitoring using standard EEG montages. BACKGROUND RHYTHM: The EEG shows a background activity of 7 Hz theta activity in parietooccipital region. The EEG activity is bilaterally symmetrical and synchronous. There is attenuation of the background activity on eye opening. Small amount of myogenic artifact noticed in this EEG recording. ABNORMAL POTENTIALS: No spike, sharp waves, or focal slowing was seen. PHOTIC STIMULATION AND HYPERVENTILATION: Photic stimulation did not reveal any abnormality. Hyperventilation was not performed. IMPRESSION: Abnormal electroencephalogram. The above findings are consistent with mild bihemispheric cerebral dysfunction. No epileptiform activity is seen in this EEG recording. Casper Katz MD
[2017-03-18] MEDS: Divalproex 250 mg DR (BID formulation) PO SCH ×2 (10:34→19:25)
[2017-03-18] MEDS: Cholecalciferol 1,000 INTLU TAB PO SCH (10:35)
--- NOTE | 2017-03-18 14:08 | CP.PCM.PN ---
<Alyssa Mosqueda - Last Filed: 03/18/17 17:31> Subjective - Date & Time of Evaluation Date of Evaluation: 03/18/17 Time of Evaluation: 10:00 - Subjective Subjective: Alyssa Mosqueda DO, PGY-1: Hospitalist Patient seen and examined at bedside. Patient right foot/ankle was placed in fracture boot by podiatry. Patient outright refused physical therapy to walk her. Patient was reportedly more agitated today. I spoke with Score Caller Pamela in regards to the patient's clinical course. Objective - Vital Signs/Intake and Output Vital Signs (last 24 hours): Temp Pulse Resp BP Pulse Ox 97.7 F 76 20 103/53 L 100 03/18/17 07:58 03/18/17 07:58 03/18/17 07:58 03/18/17 07:58 03/18/17 07:58 Intake and Output: 03/18/17 03/18/17 06:59 18:59 Intake Total 720 Output Total 1 Balance 719 - Medications Medications: Current Medications Acetaminophen (Tylenol 325mg Tab) 650 mg PO Q4 PRN PRN Reason: Pain, moderate (4-7) Last Admin: 03/17/17 10:47 Dose: 650 mg Aspirin (Ecotrin) 81 mg PO DAILY [facility] Last Admin: 03/18/17 10:35 Dose: 81 mg Calcium Carbonate (Oscal) 500 mg PO DAILY [facility] Last Admin: 03/18/17 10:34 Dose: 500 mg Cholecalciferol (Vitamin D) 1,000 iu PO DAILY [facility] Last Admin: 03/18/17 10:35 Dose: 1,000 iu Clonazepam (Klonopin) 0.5 mg PO Q12H [facility] PRN Reason: Protocol Clotrimazole (Lotrimin 1%) 0 gm TOP BID [facility] Last Admin: 03/17/17 17:32 Dose: 1 applic Divalproex Sodium (Depakote Dr (*Bid*)) 250 mg PO BID [facility] PRN Reason: Protocol Last Admin: 03/18/17 10:34 Dose: 250 mg Docusate Sodium (Colace) 100 mg PO DAILY [facility] Last Admin: 03/18/17 10:34 Dose: 100 mg Donepezil HCl (Aricept) 10 mg PO HS [facility] Last Admin: 03/17/17 22:29 Dose: 10 mg Escitalopram Oxalate (Lexapro) 10 mg PO DAILY [facility] Last Admin: 03/18/17 10:34 Dose: 10 mg Famotidine (Pepcid) 20 mg PO DAILY [facility] Last Admin: 03/18/17 10:35 Dose: 20 mg Ferrous Sulfate (Feosol) 324 mg PO TID [facility] Last Admin: 03/18/17 10:34 Dose: 324 mg Heparin Sodium (Porcine) (Heparin) 5,000 units SC Q12 [facility] PRN Reason: Protocol Last Admin: 03/18/17 10:35 Dose: 5,000 units Levothyroxine Sodium (Synthroid) 88 mcg PO 0600 [facility] Last Admin: 03/18/17 05:19 Dose: 88 mcg Quetiapine Fumarate (Seroquel) 100 mg PO DAILY [facility] PRN Reason: Protocol Last Admin: 03/18/17 10:35 Dose: 100 mg Quetiapine Fumarate (Seroquel Xr) 400 mg PO DAILY [facility] PRN Reason: Protocol - Labs Labs: 03/18/17 07:10 03/18/17 07:10 - Constitutional Appears: Well, Non-toxic - Head Exam Head Exam: ATRAUMATIC, NORMOCEPHALIC Additional comments: down syndrome facies - Eye Exam Additional comments: strabismus - ENT Exam ENT Exam: Mucous Membranes Moist, Normal Oropharynx - Respiratory Exam Respiratory Exam: Clear to Ausculation Bilateral, NORMAL BREATHING PATTERN - Cardiovascular Exam Cardiovascular Exam: RRR, +S1, +S2 - GI/Abdominal Exam GI & Abdominal Exam: Soft, Normal Bowel Sounds - Extremities Exam Additional comments: right foot in boot, no pain to palpation of the lateral and medial malleolus. - Back Exam Back Exam: NORMAL INSPECTION. absent: CVA tenderness (L), CVA tenderness (R) - Neurological Exam Neurological Exam: Alert, Awake Additional comments: right foot contractured - Psychiatric Exam Psychiatric exam: Normal Affect, Normal Mood - Skin Skin Exam: Dry, Intact, Normal Color, Warm Assessment and Plan - Assessment and Plan (Free Text) Assessment: 57 year old female with a past medical history of Down's syndrome, CVA, affective disorder, and gout who presented to [facility] are being found on the floor next to her bed s/p presumed fall without any loss of consciousness. Plan: 1) Stable lateral malleolar fracture of right ankle - Splint removed and right foot/ankle placed in contracture boot while awaiting for fracture boot. - Orthopedics recommendations appreciated 2) History of CVA - Aspirin 81 mg 3) Gout prophylaxis - Colchicine 0.6 mg PO daily 4) Hypothyroidism - Synthroid 88 mcg PO 5) Affective disorder with cognitive impairment - Lexapro 10 mg PO daily - Divalproex 250 mg BID [facility] - Donazepil 10 mg HS - Clonazepam 0.5 mg PO HS (switched from BID to just HS) - Quetipine 100 mg 6) Fungal infection in abdominal folds and perineal area - Clotrimazole 1% applied to affected area twice a day 7) Vitamin and Iron deficiency - 324 Ferrous Sulfate three times a day - Vitamin D 1,000 units daily -Calcium 500 mg PO daily 8) GI/DVT - Heparin 5,000 Units SC q12h - Famotidine 20 mg PO Daily Plan: 1) Stable lateral malleolar fracture of right ankle s/p presumed mechanical fall - Splint removed and right foot/ankle placed in fracture boot. - Patient refused physical therapy - CT head negative - Neurology consulted, Dr. Casper Katz, appreciate recommendations. - EEG Impression: Abnormal EEG, findings consistent with mild bihemispheric cerebral dysfunction. No abnormal epileptiform activity seen in this EEG. - Physical therapy will try to ambulate with patient. 2) History of CVA - Aspirin 81 mg 3) Hypothyroidism - Synthroid 88 mcg PO 4) Affective disorder with cognitive impairment - Lexapro 10 mg PO daily - Divalproex 250 mg BID [facility] - Donazepil 10 mg HS - Clonazepam 0.5 mg PO BID - Quetipine ER 150 mg at 20:00 5) abdominal folds and perineal area - Clotrimazole 1% applied to affected area twice a day 6) Vitamin and Iron deficiency - 324 Ferrous Sulfate three times a day - Vitamin D 1,000 units daily - Calcium 500 mg PO daily 7) GI/DVT - Heparin 5,000 Units SC q12h - Famotidine 20 mg PO Daily <Brit Wen - Last Filed: 03/21/17 12:40> Objective - Vital Signs/Intake and Output Vital Signs (last 24 hours): Temp Pulse Resp BP Pulse Ox 98.2 F 83 20 93/52 L 94 L 03/20/17 18:42 03/20/17 18:42 03/20/17 18:42 12/15/17 18:42 03/20/17 18:42 Intake and Output: 03/21/17 03/21/17 06:59 18:59 Intake Total 360 Balance 360 - Labs Labs: 03/20/17 06:30 03/20/17 06:30 Attending/Attestation - Attestation I have personally seen and examined this patient.: Yes I have fully participated in the care of the patient.: Yes I have reviewed all pertinent clinical information, including history, physical exam and plan: Yes Notes (Text): 03/21/17 12:39 Patient was seen and examined with back office medical assistant. 57 year old female with past medical history of CVA, Trisomy 21, hypothyroidism and mood disorder was admitted with fall, found to have nondisplaced transverse fracture of the lateral right malleolus fracture , s/p splint. Orthopedics and PT evaluation were appreciated.There is no overnight issue. Patient is at her base line.Patient is awaiting for special boot for foot prior to discharge
[2017-03-18] MEDS: Clotrimazole 1% Cream(30 gm) TOP SCH ×2 (19:25→19:26)
[2017-03-18] MEDS: QUEtiapine 150 mg XR Tab PO SCH (22:22)
[2017-03-19] MEDS: Levothyroxine 88 MCG TAB PO SCH (05:31)
[2017-03-19] MEDS: Cholecalciferol 1,000 INTLU TAB PO SCH (09:36)
[2017-03-19] MEDS: Divalproex 250 mg DR (BID formulation) PO SCH ×2 (09:37→17:05)
[2017-03-19] MEDS: Clotrimazole 1% Cream(30 gm) TOP SCH ×2 (09:37→17:05)
[2017-03-19] MEDS: QUEtiapine 150 mg XR Tab PO SCH (09:37)
[2017-03-19 09:38] VITALS: RESP 20
--- NOTE | 2017-03-19 12:34 | CP.PCM.DIS ---
Provider - Provider Date of Admission: 03/14/17 18:17 Attending physician: Brit Wen MD Primary care physician: Melivna Alex MD Consults: Dr. Garcia Orthopedist Dr. Casper Katz Neurology Time Spent in preparation of Discharge (in minutes): 45 Hospital Course - Lab Results Lab Results: Most Recent Lab Values WBC 3.8 10^3/ul (4.5-11.0) L 03/18/17 07:10 RBC 3.70 10^6/uL (3.5-6.1) 03/18/17 07:10 Hgb 10.9 g/dL (12.0-16.0) L 03/18/17 07:10 Hct 35.6 % (36.0-48.0) L 03/18/17 07:10 MCV 96.2 fl (80.0-105.0) 03/18/17 07:10 MCH 29.5 pg (25.0-35.0) 03/18/17 07:10 MCHC 30.6 g/dl (31.0-37.0) L 03/18/17 07:10 RDW 18.1 % (11.5-14.5) H 03/18/17 07:10 Plt Count 245 10^3/uL (120.0-450.0) 03/18/17 07:10 MPV 10.9 fl (7.0-11.0) 03/18/17 07:10 Gran % 35.9 % (50.0-68.0) L 03/18/17 07:10 Lymph % (Auto) 53.2 % (22.0-35.0) H 03/18/17 07:10 [place] % (Auto) 6.1 % (1.0-6.0) H 03/18/17 07:10 Eos % (Auto) 2.7 % (1.5-5.0) 03/18/17 07:10 Baso % (Auto) 2.1 % (0.0-3.0) 03/18/17 07:10 Gran # 1.35 (1.4-6.5) L 03/18/17 07:10 Lymph # 2.0 (1.2-3.4) 03/18/17 07:10 [place] # 0.2 (0.1-0.6) 03/18/17 07:10 Eos # 0.1 (0.0-0.7) 03/18/17 07:10 Baso # 0.08 K/mm3 (0.0-2.0) 03/18/17 07:10 Sodium 140 mmol/L (132-148) 03/18/17 07:10 Potassium 4.3 mmol/L (3.6-5.0) 03/18/17 07:10 Chloride 104 mmol/L (98-107) 03/18/17 07:10 Carbon Dioxide 31 mmol/L (21-33) 03/18/17 07:10 Anion Gap 9 (10-20) L 03/18/17 07:10 BUN 20 mg/dL (7-21) 03/18/17 07:10 Creatinine 1.1 mg/dl (0.7-1.2) 03/18/17 07:10 Est GFR ( Amer) > 60 03/18/17 07:10 Est GFR (Non-Af Amer) 51 03/18/17 07:10 Random Glucose 87 mg/dL (70-110) 03/18/17 07:10 Calcium 9.0 mg/dL (8.4-10.5) 03/18/17 07:10 Iron 28 ug/dL (45-180) L 03/15/17 06:00 TIBC 234 ug/dL (265-497) L 03/15/17 06:00 % Saturation 12 % (20-55) L 03/15/17 06:00 Ferritin 89.3 ng/mL 03/15/17 06:00 Total Bilirubin 0.5 mg/dL (0.2-1.3) 03/18/17 07:10 AST 19 U/L (14-36) 03/18/17 07:10 ALT 27 U/L (7-56) 03/18/17 07:10 Alkaline Phosphatase 101 U/L (38-126) 03/18/17 07:10 Lactate Dehydrogenase 712 U/L (333-699) H 03/13/17 00:30 Total Creatine Kinase 85 U/L (35-230) 03/13/17 00:30 Troponin I < 0.01 ng/mL 03/13/17 00:30 Total Protein 5.9 g/dL (5.8-8.3) 03/18/17 07:10 Albumin 3.1 g/dL (3.0-4.8) 03/18/17 07:10 Globulin 2.8 gm/dL 03/18/17 07:10 Albumin/Globulin Ratio 1.1 (1.1-1.8) 03/18/17 07:10 Lipase 288 U/L (23-300) 03/13/17 00:30 Vitamin B12 902 pg/mL (239-931) 03/15/17 06:00 Folate 11.6 ng/mL 03/15/17 06:00 Free T4 0.79 ng/dL (0.78-2.19) 03/13/17 10:13 TSH 3rd Generation 9.16 mIU/mL (0.46-4.68) H 03/13/17 10:13 Urine Color Yellow (YELLOW) 03/15/17 20:25 Urine Appearance Clear (CLEAR) 03/15/17 20:25 Urine pH 7.0 (4.7-8.0) 03/15/17 20:25 Ur Specific [place] 1.010 (1.005-1.035) 03/15/17 20:25 Urine Protein Negative mg/dL (<30 mg/dL) 03/15/17 20:25 Urine Glucose (UA) Negative mg/dL (NEGATIVE) 03/15/17 20:25 Urine Ketones Negative mg/dL (NEGATIVE) 03/15/17 20:25 Urine Blood Negative (NEGATIVE) 03/15/17 20:25 Urine Nitrate Negative (NEGATIVE) 03/15/17 20:25 Urine Bilirubin Negative (NEGATIVE) 03/15/17 20:25 Urine Urobilinogen 0.2 E.U./dL (<1 E.U./dL) 03/15/17 20:25 Ur Leukocyte Esterase Negative Pete/uL (NEGATIVE) 03/15/17 20:25 - Hospital Course Hospital Course: 57 year old female with a past medical history significant for Down's syndrome, dementia, CVA, hypothyroidism, and gout who lives in a residential and was brought to the ED after being found next to her bed for a presumed, unwitnessed fall of unknown etiology. Labs and imaging, including but not limited to, CT head, cervical, and thoracic spine were negative for any acute changes, while radiographs of the right hand, left ankle, and right ankle were negative, except for a questionable, non-displaced, transverse fracture of the lateral malleolus of the right ankle. The patient's right ankle was splinted in the ED and the patient was admitted to telemetry and placed on a insurance collector. Furthermore, neurology was consulted who performed an EEG that showed no epileptiform activity, but did show findings consistent with mild, bi- hemispheric cognitive dysfunction. Orthopedics was consulted who managed the patient ankle fracture conservatively. Physical therapy made attempts to walk the patient, but the patient refused. The research group director was contacted and informed that the patient was not amenable to physical therapy in the hospital and was outright refusing a walking trial. Important to note, the patient's baseline ambulatory status was unknown throughout her hospital course. The patient's did require a 1:1 sitter given her high risk for fall. Otherwise, the patient was discharged back to her residential with recommendations for at home physical therapy. - Date & Time of H&P Date of H&P: 03/19/17 Time of H&P: 13:33 Discharge Exam - Head Exam Head Exam: ATRAUMATIC, NORMOCEPHALIC - Eye Exam Pupil Exam: PERRL Additional comments: strabismus - ENT Exam ENT Exam: Mucous Membranes Moist, Normal Oropharynx - Neck Exam Neck exam: Normal Inspection - Respiratory Exam Respiratory Exam: Clear to PA & Lateral, NORMAL BREATHING PATTERN - Cardiovascular Exam Cardiovascular Exam: RRR, +S1, +S2 - GI/Abdominal Exam GI & Abdominal Exam: Normal Bowel Sounds, Unremarkable Discharge Plan - Follow Up Plan Condition: FAIR Disposition: HOME/ ROUTINE Additional Instructions: 1) Patient to follow up with PMD within the next seven days. 2) Patient recommended to schedule outpatient physical therapy and ambulate with assistance. 3) Patient to return to the ED for any worsening of symptoms. Referrals: Melvina Alex MD [Primary Care Provider] -
--- NOTE | 2017-03-19 16:10 | CP.PCM.PN ---
<Alyssa Mosqueda - Last Filed: 03/19/17 16:22> Subjective - Date & Time of Evaluation Date of Evaluation: 03/19/17 Time of Evaluation: 09:00 - Subjective Subjective: Alyssa Mosqueda DO, PGY-1: Hospitalist Service Patient seen and examined at bedside and OOB to chair. Patient is amenable to going to a nursing facility. Patient denies any pain, leg swelling, shortness of breath. Nurse reports no events overnight. Objective - Vital Signs/Intake and Output Vital Signs (last 24 hours): Temp Pulse Resp BP Pulse Ox 98.6 F 60 20 114/52 L 96 03/19/17 08:00 03/19/17 08:00 03/19/17 08:00 03/19/17 08:00 03/19/17 08:00 Intake and Output: 03/19/17 03/19/17 06:59 18:59 Intake Total 480 Output Total 600 Balance -120 - Medications Medications: Current Medications Acetaminophen (Tylenol 325mg Tab) 650 mg PO Q4 PRN PRN Reason: Pain, moderate (4-7) Last Admin: 03/17/17 10:47 Dose: 650 mg Aspirin (Ecotrin) 81 mg PO DAILY [facility] Last Admin: 03/19/17 09:37 Dose: 81 mg Calcium Carbonate (Oscal) 500 mg PO DAILY [facility] Last Admin: 03/19/17 09:37 Dose: 500 mg Cholecalciferol (Vitamin D) 1,000 iu PO DAILY [facility] Last Admin: 03/19/17 09:36 Dose: 1,000 iu Clonazepam (Klonopin) 0.5 mg PO Q12H SUNG PRN Reason: Protocol Last Admin: 03/19/17 08:10 Dose: Not Given Clotrimazole (Lotrimin 1%) 0 gm TOP BID [facility] Last Admin: 03/19/17 09:37 Dose: 1 applic Divalproex Sodium (Depakote Dr (*Bid*)) 250 mg PO BID [facility] PRN Reason: Protocol Last Admin: 03/19/17 09:37 Dose: 250 mg Docusate Sodium (Colace) 100 mg PO DAILY [facility] Last Admin: 03/19/17 09:37 Dose: 100 mg Donepezil HCl (Aricept) 10 mg PO HS [facility] Last Admin: 03/18/17 22:22 Dose: 10 mg Escitalopram Oxalate (Lexapro) 10 mg PO DAILY [facility] Last Admin: 03/19/17 09:36 Dose: 10 mg Famotidine (Pepcid) 20 mg PO DAILY [facility] Last Admin: 03/19/17 09:36 Dose: 20 mg Ferrous Sulfate (Feosol) 324 mg PO TID [facility] Last Admin: 03/19/17 13:50 Dose: Not Given Heparin Sodium (Porcine) (Heparin) 5,000 units SC Q12 [facility] PRN Reason: Protocol Last Admin: 03/19/17 09:37 Dose: Not Given Levothyroxine Sodium (Synthroid) 88 mcg PO 0600 [facility] Last Admin: 03/19/17 05:31 Dose: 88 mcg Quetiapine Fumarate (Seroquel Xr) 150 mg PO DAILY [facility] PRN Reason: Protocol Last Admin: 03/19/17 09:37 Dose: 150 mg - Labs Labs: 03/18/17 07:10 03/18/17 07:10 - Constitutional Appears: Well, No Acute Distress - Head Exam Head Exam: ATRAUMATIC, NORMOCEPHALIC - Eye Exam Eye Exam: EOMI, Normal appearance - ENT Exam ENT Exam: Mucous Membranes Moist, Normal Oropharynx - Neck Exam Neck Exam: Normal Inspection. absent: Thyromegaly - Respiratory Exam Respiratory Exam: Clear to Ausculation Bilateral, NORMAL BREATHING PATTERN - Cardiovascular Exam Cardiovascular Exam: RRR, +S1, +S2 - GI/Abdominal Exam GI & Abdominal Exam: Soft, Normal Bowel Sounds - Extremities Exam Extremities Exam: absent: Tenderness Additional comments: right medial and lateral malleolus are not tender to palpation. Internal, external, plantar and dorsiflexion of right foot are restricted. - Neurological Exam Neurological Exam: Alert, Awake - Psychiatric Exam Psychiatric exam: Normal Affect, Normal Mood - Skin Skin Exam: Dry, Intact, Normal Color, Warm Assessment and Plan - Assessment and Plan (Free Text) Assessment: 57 year old female with a past medical history significant for Down's syndrome, dementia, CVA, hypothyroidism, and gout who lives in a detention and was brought to the ED after being found next to her bed for a presumed, unwitnessed fall of unknown etiology. Labs and imaging, including but not limited to, CT head, cervical, and thoracic spine were negative for any acute changes, while radiographs of the right hand, left ankle, and right ankle were negative, except for a questionable, non-displaced, transverse fracture of the lateral malleolus of the right ankle. The patient's right ankle was splinted in the ED and the patient was admitted to telemetry and placed on a patient monitor. Furthermore, neurology was consulted and performed an EEG that showed no epileptiform activity, but did show findings consistent with mild, bihemispheric cognitive dysfunction. Orthopedics was consulted who managed the patient ankle fracture conservatively. Physical therapy was also consulted. Plan: 1) Stable lateral malleolar fracture of right ankle s/p presumed mechanical fall - Splint removed and right foot/ankle placed in fracture boot. - Patient refused physical therapy - CT head negative - Neurology consulted, Dr. Casper Katz, appreciate recommendations. - EEG Impression: Abnormal EEG, findings consistent with mild bihemispheric cerebral dysfunction. No abnormal epileptiform activity seen in this EEG. - Physical therapy will try to ambulate with patient. 2) History of CVA - Aspirin 81 mg 3) Hypothyroidism - Synthroid 88 mcg PO 4) Affective disorder with cognitive impairment - Lexapro 10 mg PO daily - Divalproex 250 mg BID SUNG - Donazepil 10 mg HS - Clonazepam 0.5 mg PO BID - Quetipine ER 150 mg at 20:00 5) abdominal folds and perineal area - Clotrimazole 1% applied to affected area twice a day 6) Vitamin and Iron deficiency - 324 Ferrous Sulfate three times a day - Vitamin D 1,000 units daily - Calcium 500 mg PO daily 7) GI/DVT - Heparin 5,000 Units SC q12h - Famotidine 20 mg PO Daily Case was discussed with vp digital marketing social media and crm and case management. <Brit Wen - Last Filed: 03/21/17 12:42> Objective - Vital Signs/Intake and Output Vital Signs (last 24 hours): Temp Pulse Resp BP Pulse Ox 98.2 F 83 20 93/52 L 94 L 03/20/17 18:42 03/20/17 18:42 03/20/17 18:42 03/20/17 18:42 03/20/17 18:42 Intake and Output: 03/21/17 03/21/17 06:59 18:59 Intake Total 360 Balance 360 - Labs Labs: 03/20/17 06:30 03/20/17 06:30 Attending/Attestation - Attestation I have personally seen and examined this patient.: Yes I have fully participated in the care of the patient.: Yes I have reviewed all pertinent clinical information, including history, physical exam and plan: Yes Notes (Text): 03/21/17 12:41 Patient was seen and examined with medical director occupational health. 57 year old female with past medical history of CVA, Trisomy 21, hypothyroidism and mood disorder was admitted with h/o fall, found to have nondisplaced transverse fracture of the lateral right malleolus fracture , s/p splint. Orthopedics and PT evaluation were appreciated.There is no overnight issue.Patient is not very cooperative with Physical therapy due to mental retardation.Case management is working for disposition.She will be discharged to [facility] once the arrangements are made.
--- NOTE | 2017-03-19 19:14 | CARD ---
APPROVED REPORT EKG Measurement Heart [id number] [place] 136P-14 [id number] <Conclusion> Normal sinus rhythm Normal ECG
[2017-03-19] MEDS ORDERED: QUEtiapine 200 mg XR Tab PO SCH (20:00)
[2017-03-20 07:07] LABS: BASO # 0.07 K/mm3 (0.0-2.0); BASO % 1.9 % (0.0-3.0); EOS # 0.1 (0.0-0.7); EOS % 2.4 % (1.5-5.0); GRAN # 1.25 (1.4-6.5); GRAN % 33.3 % (50.0-68.0); HEMATOCRIT 39.3 % (36.0-48.0); LYMPH % 53.6 % (22.0-35.0); MEAN CELL VOLUME 95.9 fl (80.0-105.0); MEAN CORPUSCULAR HGB CONC 31.3 g/dl (31.0-37.0); MEAN PLATELET VOLUME 11.2 fl (7.0-11.0); MONO # 0.3 (0.1-0.6); MONO % 8.8 % (1.0-6.0); WHITE BLOOD COUNT 3.8 10^3/ul (4.5-11.0)
[2017-03-20 07:55] LABS: ALB/GLOB RATIO 1.2 (1.1-1.8); ALKALINE PHOSPHATASE 122 U/L (38-126); ALT/SGPT 33 U/L (7-56); AST/SGOT 28 U/L (14-36); BILIRUBIN,TOTAL 0.4 mg/dL (0.2-1.3); BLOOD UREA NITROGEN 20 mg/dL (7-21); CALCIUM 9.1 mg/dL (8.4-10.5); CARBON DIOXIDE 30 mmol/L (21-33); CHLORIDE 104 mmol/L (98-107); GFR AFRICAN-AMERICAN > 60; GLUCOSE,RANDOM 90 mg/dL (70-110); POTASSIUM 3.9 mmol/L (3.6-5.0); SODIUM 142 mmol/L (132-148); TOTAL PROTEIN 6.6 g/dL (5.8-8.3)
[2017-03-20] MEDS: Cholecalciferol 1,000 INTLU TAB PO SCH (09:22)
[2017-03-20] MEDS: Divalproex 250 mg DR (BID formulation) PO SCH ×2 (09:22→17:29)
[2017-03-20] MEDS: QUEtiapine 150 mg XR Tab PO SCH (09:23)
[2017-03-20] MEDS: Clotrimazole 1% Cream(30 gm) TOP SCH ×2 (09:24→17:29)
--- NOTE | 2017-03-20 14:57 | CP.PCM.DIS ---
<Alyssa Mosqueda - Last Filed: 03/20/17 14:59> Provider - Provider Date of Admission: 03/14/17 18:17 Attending physician: Brit Wen MD Primary care physician: Melvina Alex MD Consults: Dr. Garcia Orthopedics Dr. Casper Katz Neurology Time Spent in preparation of Discharge (in minutes): 55 Diagnosis - Discharge Diagnosis (1) Ankle fracture Status: Acute Hospital Course - Lab Results Lab Results: Most Recent Lab Values WBC 3.8 10^3/ul (4.5-11.0) L 03/20/17 06:30 RBC 4.10 10^6/uL (3.5-6.1) 03/20/17 06:30 Hgb 12.3 g/dL (12.0-16.0) 03/20/17 06:30 Hct 39.3 % (36.0-48.0) 03/20/17 06:30 MCV 95.9 fl (80.0-105.0) 03/20/17 06:30 MCH 30.0 pg (25.0-35.0) 03/20/17 06:30 MCHC 31.3 g/dl (31.0-37.0) 03/20/17 06:30 RDW 18.0 % (11.5-14.5) H 03/20/17 06:30 Plt Count 238 10^3/uL (120.0-450.0) 03/20/17 06:30 MPV 11.2 fl (7.0-11.0) H 03/20/17 06:30 Gran % 33.3 % (50.0-68.0) L 03/20/17 06:30 Lymph % (Auto) 53.6 % (22.0-35.0) H 03/20/17 06:30 [place] % (Auto) 8.8 % (1.0-6.0) H 03/20/17 06:30 Eos % (Auto) 2.4 % (1.5-5.0) 03/20/17 06:30 Baso % (Auto) 1.9 % (0.0-3.0) 03/20/17 06:30 Gran # 1.25 (1.4-6.5) L 03/20/17 06:30 Lymph # 2.0 (1.2-3.4) 03/20/17 06:30 [place] # 0.3 (0.1-0.6) 03/20/17 06:30 Eos # 0.1 (0.0-0.7) 03/20/17 06:30 Baso # 0.07 K/mm3 (0.0-2.0) 03/20/17 06:30 Sodium 142 mmol/L (132-148) 03/20/17 06:30 Potassium 3.9 mmol/L (3.6-5.0) 03/20/17 06:30 Chloride 104 mmol/L (98-107) 03/20/17 06:30 Carbon Dioxide 30 mmol/L (21-33) 03/20/17 06:30 Anion Gap 13 (10-20) 03/20/17 06:30 BUN 20 mg/dL (7-21) 03/20/17 06:30 Creatinine 1.0 mg/dl (0.7-1.2) 03/20/17 06:30 Est GFR ( Amer) > 60 03/20/17 06:30 Est GFR (Non-Af Amer) 57 03/20/17 06:30 Random Glucose 90 mg/dL (70-110) 03/20/17 06:30 Calcium 9.1 mg/dL (8.4-10.5) 03/20/17 06:30 Iron 28 ug/dL (45-180) L 03/15/17 06:00 TIBC 234 ug/dL (265-497) L 03/15/17 06:00 % Saturation 12 % (20-55) L 03/15/17 06:00 Ferritin 89.3 ng/mL 03/15/17 06:00 Total Bilirubin 0.4 mg/dL (0.2-1.3) 03/20/17 06:30 AST 28 U/L (14-36) 03/20/17 06:30 ALT 33 U/L (7-56) 03/20/17 06:30 Alkaline Phosphatase 122 U/L (38-126) 03/20/17 06:30 Lactate Dehydrogenase 712 U/L (333-699) H 03/13/17 00:30 Total Creatine Kinase 85 U/L (35-230) 03/13/17 00:30 Troponin I < 0.01 ng/mL 03/13/17 00:30 Total Protein 6.6 g/dL (5.8-8.3) 03/20/17 06:30 Albumin 3.7 g/dL (3.0-4.8) 03/20/17 06:30 Globulin 3.0 gm/dL 03/20/17 06:30 Albumin/Globulin Ratio 1.2 (1.1-1.8) 03/20/17 06:30 Lipase 288 U/L (23-300) 03/13/17 00:30 Vitamin B12 902 pg/mL (239-931) 03/15/17 06:00 Folate 11.6 ng/mL 03/15/17 06:00 Free T4 0.79 ng/dL (0.78-2.19) 03/13/17 10:13 TSH 3rd Generation 9.16 mIU/mL (0.46-4.68) H 03/13/17 10:13 Urine Color Yellow (YELLOW) 03/15/17 20:25 Urine Appearance Clear (CLEAR) 03/15/17 20:25 Urine pH 7.0 (4.7-8.0) 03/15/17 20:25 Ur Specific [place] 1.010 (1.005-1.035) 03/15/17 20:25 Urine Protein Negative mg/dL (<30 mg/dL) 03/15/17 20:25 Urine Glucose (UA) Negative mg/dL (NEGATIVE) 03/15/17 20:25 Urine Ketones Negative mg/dL (NEGATIVE) 03/15/17 20:25 Urine Blood Negative (NEGATIVE) 03/15/17 20:25 Urine Nitrate Negative (NEGATIVE) 03/15/17 20:25 Urine Bilirubin Negative (NEGATIVE) 03/15/17 20:25 Urine Urobilinogen 0.2 E.U./dL (<1 E.U./dL) 03/15/17 20:25 Ur Leukocyte Esterase Negative Pete/uL (NEGATIVE) 03/15/17 20:25 - Hospital Course Hospital Course: 57 year old female with a past medical history significant for Down's syndrome, dementia, CVA, hypothyroidism, and gout who lives in a halfway and was brought to the ED after being found next to her bed for a presumed, unwitnessed fall of unknown etiology. Labs and imaging, including but not limited to, CT head, cervical, and thoracic spine were negative for any acute changes, while radiographs of the right hand, and left ankle were negative. Radiographs of the right ankle did show a questionable, non-displaced, transverse fracture of the lateral malleolus. The patient's right ankle was splinted in the ED and the patient was admitted to telemetry with fall precautions and a work-up for syncope. Orthopedics was consulted who managed the patient ankle fracture conservatively. Neurology performed an EEG that showed no epileptiform activity , but did show findings consistent with mild, bi-hemispheric cognitive dysfunction. Also, there were no arrhythmias seen on the automotive power electronics engineer while the patient was on telemetry. Physical therapy made several attempts to walk the patient, but the patient refused on several consecutive occasions but eventually did ambulate with the assistance of physical therapy. Physical therapy recommended that the patient be discharged to a subacute rehabilitation facility for gait reconditioning. - Date & Time of H&P Date of H&P: 03/20/17 Time of H&P: 15:01 Discharge Exam - Head Exam Head Exam: ATRAUMATIC, NORMOCEPHALIC - Eye Exam Additional comments: strabismus - ENT Exam ENT Exam: Mucous Membranes Moist, Normal Oropharynx - Neck Exam Neck exam: Normal Inspection - Respiratory Exam Respiratory Exam: Clear to PA & Lateral, NORMAL BREATHING PATTERN - Cardiovascular Exam Cardiovascular Exam: RRR, +S1, +S2 - GI/Abdominal Exam GI & Abdominal Exam: Normal Bowel Sounds - Extremities Exam Extremities exam: normal inspection - Back Exam Back exam: NORMAL INSPECTION. absent: CVA tenderness (L), CVA tenderness (R) - Neurological Exam Neurological exam: Alert, CN II-XII Intact, Oriented x3 - Psychiatric Exam Psychiatric exam: Normal Affect, Normal Mood - Skin Skin Exam: Dry, Intact, Normal Color, Warm Discharge Plan - Discharge Medications Prescriptions: Levothyroxine [Synthroid] 88 mcg PO 0600 #30 tab QUEtiapine [Seroquel XR] 150 mg PO HS #30 ter - Follow Up Plan Condition: FAIR Disposition: REHAB FACILITY/REHAB UNIT Instructions: Pneumococcal Vaccine for Adults (DC), Ankle Fracture (DC), Syncope (DC), Influenza Vaccine (DC) Additional Instructions: 1) Patient to follow up with PMD within the next seven days. 2) Patient to take any medications as prescribed. 3) Patient to return to the ED for any worsening of symptoms. 4) Patient to recheck TSH in 6 weeks 5) Patient to take Seroquel XR 150 mg HS, unless otherwise indicated. Referrals: Melvina Alex MD [Primary Care Provider] - <Brit Wen - Last Filed: 03/21/17 12:44> Provider - Provider Date of Admission: 03/14/17 18:17 Attending physician: Brit Wen MD Primary care physician: Melvina Alex MD Hospital Course - Lab Results Lab Results: Most Recent Lab Values WBC 3.8 10^3/ul (4.5-11.0) L 03/20/17 06:30 RBC 4.10 10^6/uL (3.5-6.1) 03/20/17 06:30 Hgb 12.3 g/dL (12.0-16.0) 03/20/17 06:30 Hct 39.3 % (36.0-48.0) 03/20/17 06:30 MCV 95.9 fl (80.0-105.0) 03/20/17 06:30 MCH 30.0 pg (25.0-35.0) 03/20/17 06:30 MCHC 31.3 g/dl (31.0-37.0) 03/20/17 06:30 RDW 18.0 % (11.5-14.5) H 03/20/17 06:30 Plt Count 238 10^3/uL (120.0-450.0) 03/20/17 06:30 MPV 11.2 fl (7.0-11.0) H 03/20/17 06:30 Gran % 33.3 % (50.0-68.0) L 03/20/17 06:30 Lymph % (Auto) 53.6 % (22.0-35.0) H 03/20/17 06:30 [place] % (Auto) 8.8 % (1.0-6.0) H 03/20/17 06:30 Eos % (Auto) 2.4 % (1.5-5.0) 03/20/17 06:30 Baso % (Auto) 1.9 % (0.0-3.0) 03/20/17 06:30 Gran # 1.25 (1.4-6.5) L 03/20/17 06:30 Lymph # 2.0 (1.2-3.4) 03/20/17 06:30 [place] # 0.3 (0.1-0.6) 03/20/17 06:30 Eos # 0.1 (0.0-0.7) 03/20/17 06:30 Baso # 0.07 K/mm3 (0.0-2.0) 03/20/17 06:30 Sodium 142 mmol/L (132-148) 03/20/17 06:30 Potassium 3.9 mmol/L (3.6-5.0) 03/20/17 06:30 Chloride 104 mmol/L (98-107) 03/20/17 06:30 Carbon Dioxide 30 mmol/L (21-33) 03/20/17 06:30 Anion Gap 13 (10-20) 03/20/17 06:30 BUN 20 mg/dL (7-21) 03/20/17 06:30 Creatinine 1.0 mg/dl (0.7-1.2) 03/20/17 06:30 Est GFR ( Amer) > 60 03/20/17 06:30 Est GFR (Non-Af Amer) 57 03/20/17 06:30 Random Glucose 90 mg/dL (70-110) 03/20/17 06:30 Calcium 9.1 mg/dL (8.4-10.5) 03/20/17 06:30 Iron 28 ug/dL (45-180) L 03/15/17 06:00 TIBC 234 ug/dL (265-497) L 03/15/17 06:00 % Saturation 12 % (20-55) L 03/15/17 06:00 Ferritin 89.3 ng/mL 03/15/17 06:00 Total Bilirubin 0.4 mg/dL (0.2-1.3) 03/20/17 06:30 AST 28 U/L (14-36) 03/20/17 06:30 ALT 33 U/L (7-56) 03/20/17 06:30 Alkaline Phosphatase 122 U/L (38-126) 03/20/17 06:30 Lactate Dehydrogenase 712 U/L (333-699) H 03/13/17 00:30 Total Creatine Kinase 85 U/L (35-230) 03/13/17 00:30 Troponin I < 0.01 ng/mL 03/13/17 00:30 Total Protein 6.6 g/dL (5.8-8.3) 03/20/17 06:30 Albumin 3.7 g/dL (3.0-4.8) 03/20/17 06:30 Globulin 3.0 gm/dL 03/20/17 06:30 Albumin/Globulin Ratio 1.2 (1.1-1.8) 03/20/17 06:30 Lipase 288 U/L (23-300) 03/13/17 00:30 Vitamin B12 902 pg/mL (239-931) 03/15/17 06:00 Folate 11.6 ng/mL 03/15/17 06:00 Free T4 0.79 ng/dL (0.78-2.19) 03/13/17 10:13 TSH 3rd Generation 9.16 mIU/mL (0.46-4.68) H 03/13/17 10:13 Urine Color Yellow (YELLOW) 03/15/17 20:25 Urine Appearance Clear (CLEAR) 03/15/17 20:25 Urine pH 7.0 (4.7-8.0) 03/15/17 20:25 Ur Specific [place] 1.010 (1.005-1.035) 03/15/17 20:25 Urine Protein Negative mg/dL (<30 mg/dL) 03/15/17 20:25 Urine Glucose (UA) Negative mg/dL (NEGATIVE) 03/15/17 20:25 Urine Ketones Negative mg/dL (NEGATIVE) 03/15/17 20:25 Urine Blood Negative (NEGATIVE) 03/15/17 20:25 Urine Nitrate Negative (NEGATIVE) 03/15/17 20:25 Urine Bilirubin Negative (NEGATIVE) 03/15/17 20:25 Urine Urobilinogen 0.2 E.U./dL (<1 E.U./dL) 03/15/17 20:25 Ur Leukocyte Esterase Negative Pete/uL (NEGATIVE) 03/15/17 20:25 Attending/Attestation - Attestation I have personally seen and examined this patient.: Yes I have fully participated in the care of the patient.: Yes I have reviewed all pertinent clinical information, including history, physical exam and plan: Yes Notes (Text): 03/21/17 12:42 Patient was seen and examined with medical case manager. 57 year old female with past medical history of CVA, Trisomy 21, hypothyroidism and mood disorder was admitted with h/o fall, she was found to have nondisplaced transverse fracture of the lateral right malleolus fracture , she is s/p splint.There is no overnight issue.Patient is not very cooperative with Physical therapy due to mental retardation.She was evaluated by physical therapy during her stay in the hospital.She will be discharged home and will follow up with Orthopedic and PCP.
[2017-03-20 18:43] VITALS: BP 93/52; PULSE 83; TEMP 98.2; O2SAT 94
== END 2017-03-20 22:19 | DRG 253 ==
LOC: ED 22:57 → ERH 03-13 03:31 → 2RSO 03-13 05:31 → OBSVTOIN 03-14 18:17 → 5RSO 03-16 12:35
PROVIDERS: ADMIT Internal Medicine; ATTEND Internal Medicine
PROC: 2W3QX1Z Immobilization of Right Lower Leg using Splint (ICD-10-PCS; principal; 2017-03-14)
DX: S82.64XA Nondisplaced fracture of lateral malleolus of right fibula, initial encounter for closed fracture (principal); F03.90 Unspecified dementia, unspecified severity, without behavioral disturbance, psychotic disturbance, mood disturbance, and anxiety; N18.9 Chronic kidney disease, unspecified; I12.9 Hypertensive chronic kidney disease with stage 1 through stage 4 chronic kidney disease, or unspecified chronic kidney disease; D64.9 Anemia, unspecified; E03.9 Hypothyroidism, unspecified; E66.9 Obesity, unspecified; B36.8 Other specified superficial mycoses; M10.9 Gout, unspecified; Q90.9 Down syndrome, unspecified; I95.9 Hypotension, unspecified; K21.9 Gastro-esophageal reflux disease without esophagitis; R26.9 Unspecified abnormalities of gait and mobility; F60.2 Antisocial personality disorder; F39 Unspecified mood [affective] disorder; G47.30 Sleep apnea, unspecified; R29.6 Repeated falls; Z68.37 Body mass index [BMI] 37.0-37.9, adult; Y92.193 Bedroom in other specified residential institution as the place of occurrence of the external cause; W19.XXXA Unspecified fall, initial encounter; Z86.73 Personal history of transient ischemic attack (TIA), and cerebral infarction without residual deficits